=== PATIENT | male | born 1955 | race Caucasian/White ===

== ENCOUNTER 2018-06-11 14:16 | Emergency (ER) | payer OTHER ==
[2018-06-11] MEDS ORDERED: NS 1,000 ML IV ONE (18:22)
[2018-06-11] MEDS ORDERED: ONDANSETRON 4 MG/2 ML VIAL IVP ONE (18:22)
[2018-06-11] MEDS ORDERED: LISINOPRIL 20 MG TAB PO ONE (18:23)
--- NOTE | 2018-06-11 18:27 | EDPHY ---
H & P Stated Complaint: Out of HTN meds Time Seen by Provider: 06/11/18 17:30 HPI/ROS: CHIEF COMPLAINT: Multiple complaints HISTORY OF PRESENT ILLNESS: 63-year-old male presents with multiple complaints. Onset of nausea, vomiting and diarrhea yesterday. Multiple episodes of vomiting, associated with explosive diarrhea. Feels dehydrated. Several episodes of "passing out" over the past few months. He tends to get dizzy and then sometimes faints. He has not fallen or hurt himself. He also ran out of his blood pressure medication a while ago. He was previously taking lisinopril, propranolol and clonidine. He also complains of ongoing pain related to prior rib fracture. He has seen Dr. Velazquez for pain management in the past. REVIEW OF SYSTEMS: complete 10 point ROS reviewed and is negative except for the noted elements in the HPI Source: Patient - Personal History Current Tetanus/Diphtheria Vaccine: Yes - Medical/Surgical History Hx Asthma: No Hx Chronic Respiratory Disease: No Hx Diabetes: No Hx Cardiac Disease: Yes Hx Renal Disease: No Hx Cirrhosis: No Hx Alcoholism: No Other PMH: HTN, Hearing impaired(cochlear implants), AAA - Social History Smoking Status: Never smoked Alcohol Use: Sober Drug Use: None Additional Social History: Lives in [place] No PCP - Physical Exam Exam: General Appearance: Alert, pleasant Eyes: Pupils equal and round, no conjunctival pallor or injection ENT, Mouth: Mucous membranes moist Neck: Normal inspection Respiratory: Lungs are clear to auscultation Cardiovascular: Regular rate and rhythm, no murmur Gastrointestinal: Abdomen is soft and nontender Neurological: A&O, hard of hearing, nonfocal, normal gait Skin: Warm and dry, no rash Extremities: Nontender, no pedal edema Psychiatric: Mood and affect normal Constitutional: Initial Vital Signs Temperature (C) 36.7 C 06/11/18 14:21 Heart Rate 77 06/11/18 14:21 Respiratory Rate 18 06/11/18 14:21 Blood Pressure 196/81 H 06/11/18 14:21 O2 Sat (%) 96 06/11/18 14:21 O2 Delivery Mode Room Air Allergies/Adverse Reactions: banana Allergy (Verified 06/11/18 14:31) egg [eggs] Allergy (Verified 06/11/18 14:31) mold Allergy (Verified 06/11/18 14:31) pollen extracts Allergy (Verified 06/11/18 14:31) Home Medications: Medication Instructions Recorded Clonidine 06/11/18 Lisinopril 06/11/18 Lisinopril 20 mg PO DAILY #30 tablet 06/11/18 Propranolol HCl 06/11/18 Propranolol HCl 40 mg PO BID #30 tablet 06/11/18 Tramadol HCl 50 mg PO Q8 #10 tablet 06/11/18 clonIDINE [Catapres (*)] 0.1 mg PO BID #30 tab 06/11/18 Medical Decision Making ED Course/Re-evaluation: This patient presents with multiple complaints. I told him that we would be able to evaluate and treat the acute illness as well as the recurrent episodes of syncope. He is not ill appearing and his abdominal exam is nontender. IV normal saline 1 L and Zofran 4 mg IV given. Stat EKG reveals no evidence of ischemia or dysrhythmia. Lisinopril 10 mg orally given. After lisinopril, the patient became angry. He states that he needs all of his prescriptions filled. Although I disagree with this and I think that clonidine may be causing his dizziness, I agreed to refill his medications. No episodes of vomiting or diarrhea while in the emergency department. Differential Diagnosis: Differential diagnosis includes though is not limited to cardiac dysrhythmia, CVA, TIA, GI bleed, sepsis, hypoglycemia. - Data Points Laboratory Results: Laboratory Results 06/11/18 18:32 06/11/18 18:32 Medications Given: Discontinued Medications Sodium Chloride (Ns) 1,000 mls @ 0 mls/hr IV EDNOW ONE; Wide Open PRN Reason: Protocol Stop: 06/11/18 18:23 Last Admin: 06/11/18 18:40 Dose: 1,000 mls Lisinopril (Zestril) 10 mg PO EDNOW ONE Stop: 06/11/18 18:24 Last Admin: 06/11/18 18:42 Dose: 10 mg Ondansetron HCl (Zofran) 4 mg IVP EDNOW ONE Stop: 06/11/18 18:23 Last Admin: 06/11/18 18:40 Dose: 4 mg Departure - Departure Disposition: Home, Routine, Self-Care Clinical Impression: Syncope, Vomiting and diarrhea, Hypertension Condition: Good Instructions: Syncope (ED), Acute Nausea and Vomiting (ED), Hypertension (ED) Additional Instructions: 1. I advise you to take Lisinopril 1 tablet in the morning. 2. Check and record your blood pressure 2 times daily. 3. Followup with a primary care physician to review your blood pressure readings and your medication. 4. I advise you not to take propranolol and clonidine, unless your blood pressure remains elevated after taking Lisinopril for 3 days. Referrals: Min Mccoy MD [Medical Doctor] - As per Instructions Kristal Alfred MD [[facility] Primary Care Provider] - As per Instructions (Call to make an appointment. ) Prescriptions: clonIDINE [Catapres (*)] 0.1 mg PO BID #30 tab Lisinopril 20 mg PO DAILY #30 tablet Propranolol HCl 40 mg PO BID #30 tablet Tramadol HCl 50 mg PO Q8 #10 tablet
[2018-06-11 18:39] LABS: PLATELET COUNT 348 10^3/uL (150-400)
[2018-06-11 20:23] VITALS: BP 165/84
--- NOTE | 2018-06-11 23:11 | CPEKG ---
Test Reason : OPEN Blood Pressure : / mmHG Vent. Rate : 068 BPM Atrial Rate : 068 BPM P-R Int : 149 ms QRS Dur : 090 ms QT Int : 383 ms P-R-T Axes : 033 -41 041 degrees QTc Int : 408 ms Sinus rhythm Probable left atrial enlargement Left anterior fascicular block Left ventricular hypertrophy Confirmed by Marie Murillo ([id number]) on 06/11/2018 11:10:42 PM Referred By: Confirmed By:Marie Murillo
== END 2018-06-11 20:25 | disposition home or self-care (01) ==
DX: R55 Syncope and collapse (principal); R11.2 Nausea with vomiting, unspecified; R19.7 Diarrhea, unspecified; I10 Essential (primary) hypertension; E86.9 Volume depletion, unspecified
CPT/HCPCS: 93005; 96361; 96374; 99284; J2405

== ENCOUNTER 2018-12-06 13:18 | Inpatient (IN) | payer OTHER ==
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
[2018-12-06] MEDS ORDERED: ALBUTEROL 3 ML DEYVIAL IH ONE (14:16)
[2018-12-06 14:26] LABS: PLATELET COUNT 249 10^3/uL (150-400)
[2018-12-06] MEDS ORDERED: ACETAMINOPHEN 160 MG/5 ML UDCUP PO ONE (15:49)
[2018-12-06] MEDS: ACETAMINOPHEN 325 MG TAB PO ONE ×2 (15:59→16:18)
[2018-12-06] MEDS ORDERED: NS 2,600 ML IV ONE (16:23)
[2018-12-06] MEDS ORDERED: AZITHROMYCIN IV 500 MG in NS 250 ML IV ONE (16:24)
[2018-12-06] MEDS ORDERED: ACETAMINOPHEN 325 MG TAB PO PRN (16:36)
[2018-12-06] MEDS ORDERED: KETOROLAC 15 MG/1 ML SDV IVP ONE (17:12)
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
[2018-12-06] MEDS: HYDROCODONE/APAP 5/325 TAB PO PRN (18:44)
[2018-12-06] MEDS: IPRATROPIUM/ALBUTEROL 3 ML DEYVIAL IH SCH (21:00)
[2018-12-06] MEDS: oxyCODONE IR 5 MG TAB PO PRN (21:46)
[2018-12-06] MEDS: LORazepam 0.5 MG TAB PO PRN (22:56)
[2018-12-06] MEDS: ALBUTEROL 3 ML DEYVIAL IH PRN (22:58)
[2018-12-06] MEDS ORDERED: CEPACOL LOZENGE PO PRN (23:00)
--- NOTE | 2018-12-06 23:12 | CPEKG ---
Test Reason : OPEN Blood Pressure : / mmHG Vent. Rate : 086 BPM Atrial Rate : 087 BPM P-R Int : 159 ms QRS Dur : 090 ms QT Int : 350 ms P-R-T Axes : 046 -35 071 degrees QTc Int : 419 ms Sinus rhythm Left axis deviation Confirmed by Nichelle Perea ([id number]) on 12/06/2018 11:12:25 PM Referred By: NICHELLE PEREA Confirmed By:Nichelle Perea
[2018-12-06] MEDS: guaiFENesin 600 MG TAB.ER PO SCH (23:23)
[2018-12-07] MEDS: HYDROmorphONE/DILAUDID 1 MG/ML INJ IVP PRN ×2 (00:02→04:02)
[2018-12-07] MEDS: ALBUTEROL 3 ML DEYVIAL IH PRN ×2 (01:29→03:29)
[2018-12-07] MEDS: oxyCODONE IR 5 MG TAB PO PRN ×4 (01:45→11:03)
[2018-12-07] MEDS: LORazepam 2 MG/ML INJ IVP PRN ×2 (01:46→17:03)
[2018-12-07] MEDS: IPRATROPIUM/ALBUTEROL 3 ML DEYVIAL IH SCH ×4 (05:15→21:09)
[2018-12-07 05:22] LABS: PLATELET COUNT 192 10^3/uL (150-400)
[2018-12-07] MEDS: ENOXAPARIN 40 MG/0.4 ML SYR SC SCH (08:39)
[2018-12-07] MEDS: LORazepam 0.5 MG TAB PO PRN ×2 (08:39→16:48)
[2018-12-07] MEDS: guaiFENesin 600 MG TAB.ER PO SCH ×2 (08:39→21:29)
--- NOTE | 2018-12-07 10:26 | PDMN ---
Medical Necessity Medical necessity: Pt meets IP criteria per MD & MCG M-160; est los >2 mn for eval/tx of severe sepsis w/pneumonia (r/o aspiration), acute hypoxic respiratory failure, MATT & acute suicidal ideation; admit for further monitoring , IV abx, IVFs, suicide precautions & CARDIAC TECHNICIAN/TLC evals; hx depression, deafness, AAA; per H&P & order 12/06/18
[2018-12-07] MEDS ORDERED: MELATONIN 3 MG TAB PO PRN (11:08)
[2018-12-07] MEDS: ONDANSETRON DISINTEGRATING 4 MG TAB PO PRN (12:56)
[2018-12-07] MEDS: oxyCODONE IR 5 MG TAB PO SCH ×3 (12:56→23:18)
[2018-12-07] MEDS ORDERED: BISACODYL 10 MG SUPP PR PRN (13:32)
[2018-12-07] MEDS ORDERED: MAGNESIUM HYDROXIDE 30 ML UDCUP PO PRN (13:32)
[2018-12-07] MEDS ORDERED: POLYETHYLENE GLYCOL 3350 17 GM PKT PO PRN (13:32)
[2018-12-07] MEDS ORDERED: LACTULOSE 20 GM/30 ML UDCUP PO PRN (13:32)
[2018-12-07] MEDS: PANTOPRAZOLE SODIUM 40 MG TAB PO SCH (13:44)
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
--- NOTE | 2018-12-07 15:52 | HOSPPROG ---
Hospitalist Progress Note Assessment/Plan: 63 yo M with PMH of HTN, depression pw suicidal ideation and found to have AHRF 2/2 PNA and sepsis Acute hypoxic respiratory failure: does not normally have an oxygen requirement but now requiring 2 liters to maintain sats above 90%. I reviewed the CXR which does show an obvious infiltrate consistent with pna, along with white count. treat as below. RLL PNA: started on CAP coverage. Some mention of possible aspiration. patient does note that he has vocal cord dysfunction. METAL MINER BLASTING ordered to eval swallow as well. severe sepsis: responded to fluids and antibiotics. cont pna treatment, repeat lactate WNL. white count trending down. suicidal ideation: patient amenable to meeting with behavioral health. Not trying to leave currently but will need formal eval by TLC. If tries to leave ama I would place on M1 hold. depression/ptsd: patient reports these dx and states he has been attempting to establish care with psychiatry without success, as above. James Andersen consulted. hyponatremia: mild, likely hypovolemic. chronic pain- home medications restarted. HTN- restart lisinopril. renal function normalized. hang: suspect due to poor po intake, patient appears dry on exam, fluids overnight and recheck IP status, will require > 48 hours stay for eval/mgmt of above Patient new to my care. Old records reviewed and summarized as above. Subjective: still coughing a lot. perseverates on multiple stressors at home. Objective: Vital Signs Temp Pulse Resp BP Pulse Ox 36.9 C 105 H 16 177/83 H 95 12/07/18 11:08 12/07/18 15:12 12/07/18 15:12 12/07/18 11:08 12/07/18 15:12 Laboratory Results 12/07/18 05:00 12/07/18 05:00 12/06/18 12/07/18 12/08/18 05:59 05:59 05:59 Intake Total 2950 Output Total 100 Balance 2850 - Physical Exam Constitutional: no apparent distress, appears nourished, not in pain Eyes: PERRL, anicteric sclera, EOMI Ears, Nose, Mouth, Throat: moist mucous membranes, hearing normal, ears appear normal, no oral mucosal ulcers Cardiovascular: regular rate and rhythym, no murmur, rub, or gallop Respiratory: reduced air movement, inspiratory crackles Gastrointestinal: normoactive bowel sounds, soft, non-tender abdomen, no palpable masses Genitourinary: no bladder fullness, no bladder tenderness, no renal bruits Skin: no rashes or abrasions, no fluctuance, no induration Musculoskeletal: full muscle strength, no muscle tenderness, normal joint ROM Neurologic: AAOx3, sensation intact bilaterally Psychiatric: interacting appropriately, not anxious, not encephalopathic, thought process linear Lymph, Heme, Immunologic: no cervical LAD, no supraclavicular LAD ICD10 Worksheet Patient Problems: Problems Problem Status Onset Hypoxia Acute Pneumonia Acute Suicidal ideation Acute
--- NOTE | 2018-12-07 16:29 | ASMTCMCOM ---
CM Note CM Note Notes: Pt is a 63 yo M with a history of deafness, HTN, AAA and PTSD and depression. Pt has history of suicidal ideation. Per ED report pt has history of affording his psychiatry appts and may need assistance obtaining follow-up. Pt has been seen by Zena Andersen today. Is ruiz for safety and working closely with nursing staff. Pt is wanting to be evaluated by TLC. Plan: TBD Date Signed: 12/07/2018 04:28 PM Electronically Signed By:NOÉ De Anda
[2018-12-07] MEDS: BACLOFEN 10 MG TAB PO SCH ×2 (16:48→21:28)
[2018-12-07] MEDS: ONDANSETRON 4 MG/2 ML VIAL IVP PRN (17:38)
[2018-12-07] MEDS: MAG HYDROX/AL HYDROX/SIMETH 30 ML UDCUP PO PRN (17:39)
[2018-12-07] MEDS: AZITHROMYCIN IV 500 MG in NS 250 ML IV SCH (17:40)
[2018-12-07] MEDS: NS 1,000 ML IV SCH (17:41)
[2018-12-07] MEDS: FLUTICASONE HFA 110 MCG MDI IH SCH (21:09)
[2018-12-07] MEDS: FAMOTIDINE 20 MG TAB PO SCH (21:28)
[2018-12-07] MEDS: SENNOSIDES/DOCUSATE SODIUM TAB PO SCH (21:30)
[2018-12-07] MEDS: HYDROCODONE/APAP 5/325 TAB PO PRN (21:34)
[2018-12-07] MEDS: BRIMONIDINE/TIMOLOL 5 ML OPHT.BTL EACHEYE SCH (21:36)
[2018-12-07] MEDS: TRAVOPROST Z 0.004% 2.5 ML OPHT.BTL EACHEYE SCH (21:37)
[2018-12-07] MEDS: NEBIVOLOL HCL 5 MG TAB PO SCH (22:06)
[2018-12-08] MEDS: LORazepam 0.5 MG TAB PO PRN ×3 (01:21→20:21)
[2018-12-08] MEDS: NS 1,000 ML IV SCH (01:23)
[2018-12-08] MEDS: oxyCODONE IR 5 MG TAB PO SCH ×3 (05:20→19:08)
[2018-12-08] MEDS: IPRATROPIUM/ALBUTEROL 3 ML DEYVIAL IH SCH ×5 (05:33→20:49)
[2018-12-08 05:38] LABS: PLATELET COUNT 191 10^3/uL (150-400)
[2018-12-08] MEDS: LISINOPRIL 40 MG TAB PO SCH (10:06)
[2018-12-08] MEDS: FAMOTIDINE 20 MG TAB PO SCH ×2 (10:08→20:20)
[2018-12-08] MEDS: BACLOFEN 10 MG TAB PO SCH ×3 (10:08→21:11)
[2018-12-08] MEDS: guaiFENesin 600 MG TAB.ER PO SCH ×2 (10:09→20:20)
[2018-12-08] MEDS: PANTOPRAZOLE SODIUM 40 MG TAB PO SCH (10:11)
[2018-12-08] MEDS: ENOXAPARIN 40 MG/0.4 ML SYR SC SCH (10:12)
[2018-12-08] MEDS: BRIMONIDINE/TIMOLOL 5 ML OPHT.BTL EACHEYE SCH ×2 (10:14→21:12)
[2018-12-08] MEDS: SENNOSIDES/DOCUSATE SODIUM TAB PO SCH (10:14)
[2018-12-08] MEDS: FLUTICASONE HFA 110 MCG MDI IH SCH ×2 (11:22→20:49)
[2018-12-08] MEDS: HYDROmorphONE/DILAUDID 1 MG/ML INJ IVP PRN ×2 (12:04→18:34)
[2018-12-08] MEDS ORDERED: BISACODYL 10 MG SUPP PR PRN (13:26)
[2018-12-08] MEDS ORDERED: POLYETHYLENE GLYCOL 3350 17 GM PKT PO PRN (13:26)
[2018-12-08] MEDS ORDERED: LACTULOSE 20 GM/30 ML UDCUP PO PRN (13:26)
[2018-12-08] MEDS ORDERED: MAGNESIUM HYDROXIDE 30 ML UDCUP PO PRN (13:26)
[2018-12-08] MEDS ORDERED: NALOXONE SL SCH (13:45)
[2018-12-08] MEDS ORDERED: [UNRECOGNIZED DRUG - OTHER] SL SCH (13:45)
[2018-12-08] MEDS ORDERED: methylPREDNISolone SOD SUCC 125 MG/2 ML VIAL IVP ONE (14:00)
--- NOTE | 2018-12-08 14:46 | HOSPPROG ---
Hospitalist Progress Note Assessment/Plan: 63 yo M with PMH of HTN, depression pw suicidal ideation and found to have AHRF 2/2 PNA and sepsis Acute hypoxic respiratory failure:uses two liters at night normally for GILSON, now requiring 4 liters. repeat CXR today unchanged. Lungs sound very tight and with wheezing on expiration. White count substantially improved from admission. Patient did admit to smoking 3 grams of Marijuana daily through a bong which may be contributing to his cough. -cont abx for CAP -add solumedrol today and prednisone starting tomorrow -nebs. -oxygen -tessalon, guiafenesin RLL PNA: started on CAP coverage. Some mention of possible aspiration. patient does note that he has vocal cord dysfunction. LIGHT OUT EXAMINER ordered to eval swallow as well. severe sepsis: responded to fluids and antibiotics. cont pna treatment, repeat lactate WNL. white count trending down. suicidal ideation: behavioral health following. . Not trying to leave currently but will need formal eval by TLC. If tries to leave ama I would place on M1 hold. depression/ptsd: patient reports these dx and states he has been attempting to establish care with psychiatry without success, as above. James Andersen consulted. hyponatremia: resolved with fluids chronic pain- home medications restarted. HTN- restart lisinopril. renal function normalized. hang: suspect due to poor po intake, patient appears dry on exam, fluids overnight and recheck IP status, will require > 48 hours stay for eval/mgmt of above Subjective: coughing up a lot of brown phlegm. lungs tight. does feel improved. Objective: Vital Signs Temp Pulse Resp BP Pulse Ox 37.0 C 84 20 138/75 H 95 12/08/18 11:01 12/08/18 11:01 12/08/18 11:01 12/08/18 11:01 12/08/18 11:01 Laboratory Results 12/08/18 04:54 12/08/18 04:54 12/07/18 12/08/18 12/09/18 05:59 05:59 05:59 Intake Total 2950 5050 Output Total 100 Balance 2850 5050 - Physical Exam Constitutional: no apparent distress, appears nourished, not in pain Eyes: PERRL, anicteric sclera, EOMI Ears, Nose, Mouth, Throat: moist mucous membranes, hearing normal, ears appear normal, no oral mucosal ulcers Cardiovascular: regular rate and rhythym, no murmur, rub, or gallop Respiratory: no respiratory distress, reduced air movement, expiratory wheeze Gastrointestinal: normoactive bowel sounds, soft, non-tender abdomen, no palpable masses Genitourinary: no bladder fullness, no bladder tenderness, no renal bruits Skin: no rashes or abrasions, no fluctuance, no induration Musculoskeletal: full muscle strength, no muscle tenderness, normal joint ROM Neurologic: AAOx3, sensation intact bilaterally Psychiatric: interacting appropriately, not anxious, not encephalopathic, thought process linear Lymph, Heme, Immunologic: no cervical LAD, no supraclavicular LAD ICD10 Worksheet Patient Problems: Problems Problem Status Onset Hypoxia Acute Pneumonia Acute Suicidal ideation Acute
[2018-12-08] MEDS: Alfuzosin Hcl [Alfuzosin Hcl Er] 10 MG PO SCH (15:55)
[2018-12-08] MEDS: TAMSULOSIN HCL 0.4 MG CAP PO SCH (16:09)
[2018-12-08] MEDS: AZITHROMYCIN IV 500 MG in NS 250 ML IV SCH (17:27)
[2018-12-08] MEDS ORDERED: SODIUM CL NASAL 45 ML BTL EACHNARE PRN (17:55)
[2018-12-08] MEDS: NEBIVOLOL HCL 5 MG TAB PO SCH (20:20)
[2018-12-08] MEDS: DOCUSATE SODIUM 100 MG CAP PO SCH (21:12)
[2018-12-08] MEDS: TRAVOPROST Z 0.004% 2.5 ML OPHT.BTL EACHEYE SCH (21:13)
[2018-12-09] MEDS: oxyCODONE IR 5 MG TAB PO SCH ×4 (00:01→18:01)
[2018-12-09] MEDS: predniSONE 20 MG TAB PO SCH (08:22)
[2018-12-09] MEDS: LISINOPRIL 40 MG TAB PO SCH (08:22)
[2018-12-09] MEDS: FLUTICASONE HFA 110 MCG MDI IH SCH ×2 (09:12→21:24)
[2018-12-09] MEDS: IPRATROPIUM/ALBUTEROL 3 ML DEYVIAL IH SCH ×2 (09:12→21:17)
[2018-12-09] MEDS: BACLOFEN 10 MG TAB PO SCH ×4 (10:00→21:04)
[2018-12-09] MEDS: DOCUSATE SODIUM 100 MG CAP PO SCH ×2 (10:00→21:04)
[2018-12-09] MEDS: PANTOPRAZOLE SODIUM 40 MG TAB PO SCH (10:07)
[2018-12-09] MEDS: TAMSULOSIN HCL 0.4 MG CAP PO SCH (10:07)
[2018-12-09] MEDS: FAMOTIDINE 20 MG TAB PO SCH ×2 (10:07→21:04)
[2018-12-09] MEDS: ENOXAPARIN 40 MG/0.4 ML SYR SC SCH (10:07)
[2018-12-09] MEDS: guaiFENesin 600 MG TAB.ER PO SCH ×2 (10:07→21:03)
[2018-12-09] MEDS: MAG HYDROX/AL HYDROX/SIMETH 30 ML UDCUP PO PRN (10:07)
[2018-12-09] MEDS: BRIMONIDINE/TIMOLOL 5 ML OPHT.BTL EACHEYE SCH ×2 (10:32→21:06)
[2018-12-09] MEDS: Alfuzosin Hcl [Alfuzosin Hcl Er] 10 MG PO SCH (10:33)
[2018-12-09] MEDS: NS 1,000 ML IV SCH (14:07)
[2018-12-09] MEDS: hydrOXYzine HCL 10 MG TAB PO PRN (14:08)
[2018-12-09] MEDS: LORazepam 0.5 MG TAB PO PRN (16:09)
[2018-12-09] MEDS: ALBUTEROL 3 ML DEYVIAL IH PRN (16:10)
[2018-12-09] MEDS: AZITHROMYCIN IV 500 MG in NS 250 ML IV SCH (16:29)
--- NOTE | 2018-12-09 16:47 | HOSPPROG ---
Hospitalist Progress Note Assessment/Plan: 63 yo M with PMH of HTN, depression pw suicidal ideation and found to have AHRF 2/2 PNA and sepsis Acute hypoxic respiratory failure:uses two liters at night normally for GILSON, now requiring 4 liters. repeat CXR unchanged. Lungs sound very tight and with wheezing on expiration. White count substantially improved from admission. Patient did admit to smoking 3 grams of Marijuana daily through a bong which may be contributing to his cough. -cont abx for CAP -cont prednisone -nebs. -oxygen -tessalon, guiafenesin RLL PNA: started on CAP coverage. Some mention of possible aspiration. patient does note that he has vocal cord dysfunction. MEDICAL BILLING SPECIALIST ordered to eval swallow as well. severe sepsis: resolved. responded to fluids and antibiotics. cont pna treatment , repeat lactate WNL. white count trending down. suicidal ideation: behavioral health following. . Not trying to leave currently but will need formal eval by TLC. If tries to leave ama I would place on M1 hold. depression/ptsd: patient reports these dx and states he has been attempting to establish care with psychiatry without success, as above. James Andersen consulted. hyponatremia: resolved with fluids chronic pain- home medications restarted. HTN- restart lisinopril. renal function normalized. hang:resolved with fluids IP status, will require > 48 hours stay for eval/mgmt of above Subjective: lungs mildly better today. still coughing a lot. Objective: Vital Signs Temp Pulse Resp BP Pulse Ox 36.7 C 79 18 162/76 H 95 12/09/18 06:53 12/09/18 16:13 12/09/18 16:13 12/09/18 08:22 12/09/18 16:13 Laboratory Results 12/08/18 04:54 12/08/18 04:54 12/08/18 12/09/18 12/10/18 05:59 05:59 05:59 Intake Total 5050 1999 Balance 5050 1999 - Physical Exam Constitutional: no apparent distress, appears nourished Eyes: PERRL Ears, Nose, Mouth, Throat: moist mucous membranes, hard of hearing Cardiovascular: regular rate and rhythym, no murmur, rub, or gallop Respiratory: reduced air movement, expiratory wheeze Gastrointestinal: normoactive bowel sounds Genitourinary: no bladder fullness Skin: warm Musculoskeletal: full muscle strength Neurologic: AAOx3 Psychiatric: interacting appropriately Lymph, Heme, Immunologic: no cervical LAD, no supraclavicular LAD ICD10 Worksheet Patient Problems: Problems Problem Status Onset Hypoxia Acute Pneumonia Acute Suicidal ideation Acute
--- NOTE | 2018-12-09 17:00 | ASMTCMCOM ---
CM Note CM Note Notes: Pt discussed in rounds, with Zena Andersen RN, SUBMARINE ELEMENT COORDINATOR and met with Pt. Pt was pleasant during our interactions. Pt provided the name of Mehdi Penningtonmaddyacacia an associated director, senior living service that has managed his case and Pt signed a release of information so I could speak with Ankur. Pt did not have Ankur's phone number but did look it up and found a general number [phone] or office of director [phone]. Because it's an [facility] number and it would have been after 5p Pt agreed CM would call in the morning. Pt has a list of treatment centers I will contacted once I have spoken with Ankur. PLAN: TBD Date Signed: 12/09/2018 04:59 PM Electronically Signed By:Sofia Zee
[2018-12-09] MEDS: HYDROmorphONE/DILAUDID 1 MG/ML INJ IVP PRN (21:02)
[2018-12-09] MEDS: NEBIVOLOL HCL 5 MG TAB PO SCH (21:04)
[2018-12-09] MEDS: PRAZOSIN HCL 1 MG CAP PO SCH (21:04)
[2018-12-09] MEDS: TRAVOPROST Z 0.004% 2.5 ML OPHT.BTL EACHEYE SCH (21:05)
[2018-12-09] MEDS: ONDANSETRON 4 MG/2 ML VIAL IVP PRN (21:41)
[2018-12-10] MEDS: oxyCODONE IR 5 MG TAB PO SCH ×5 (00:08→23:29)
[2018-12-10] MEDS: LORazepam 0.5 MG TAB PO PRN ×2 (00:08→22:47)
[2018-12-10] MEDS: PROMETHAZINE HCL 25 MG/ML INJ IVP PRN (00:21)
[2018-12-10] MEDS: NS 1,000 ML IV SCH (05:02)
[2018-12-10 05:34] LABS: PLATELET COUNT 222 10^3/uL (150-400)
[2018-12-10] MEDS: IPRATROPIUM/ALBUTEROL 3 ML DEYVIAL IH SCH ×2 (08:10→21:03)
[2018-12-10] MEDS: FLUTICASONE HFA 110 MCG MDI IH SCH ×2 (08:10→21:03)
[2018-12-10] MEDS: ENOXAPARIN 40 MG/0.4 ML SYR SC SCH (08:31)
[2018-12-10] MEDS: LISINOPRIL 40 MG TAB PO SCH (08:31)
[2018-12-10] MEDS: guaiFENesin 600 MG TAB.ER PO SCH ×2 (08:31→21:35)
[2018-12-10] MEDS: DOCUSATE SODIUM 100 MG CAP PO SCH ×2 (08:31→21:35)
[2018-12-10] MEDS: FAMOTIDINE 20 MG TAB PO SCH ×2 (08:31→21:35)
[2018-12-10] MEDS: predniSONE 20 MG TAB PO SCH (08:31)
[2018-12-10] MEDS: PANTOPRAZOLE SODIUM 40 MG TAB PO SCH (08:31)
[2018-12-10] MEDS: BACLOFEN 10 MG TAB PO SCH ×3 (08:31→21:35)
[2018-12-10] MEDS: LORazepam 2 MG/ML INJ IVP PRN (08:32)
[2018-12-10] MEDS: BRIMONIDINE/TIMOLOL 5 ML OPHT.BTL EACHEYE SCH ×2 (08:36→21:35)
[2018-12-10] MEDS: HYDROmorphONE/DILAUDID 2 MG TAB PO PRN ×2 (12:43→21:34)
--- NOTE | 2018-12-10 14:39 | HOSPPROG ---
Hospitalist Progress Note Assessment/Plan: 63 yo M with PMH of HTN, depression pw suicidal ideation and found to have AHRF 2/2 PNA and sepsis Acute hypoxic respiratory failure:uses two liters at night normally for GILSON, now requiring 3-4 liters. repeat CXR minimally improved. Lungs sound better today. patient is non compliant with oxygen and not using incentive spirometer. white count conitnues to improve. -repeat am procalcitonin -cont abx for CAP -cont prednisone -nebs. -oxygen -tessalon, guiafenesin RLL PNA: started on CAP coverage. Some mention of possible aspiration. patient does note that he has vocal cord dysfunction. ASSISTANT PROFESSOR OF COMMUNICATION ordered to eval swallow as well. severe sepsis: resolved. responded to fluids and antibiotics. cont pna treatment , repeat lactate WNL. white count trending down. suicidal ideation: behavioral health following. . Not trying to leave currently but will need formal eval by TLC. If tries to leave ama I would place on M1 hold. depression/ptsd: patient reports these dx and states he has been attempting to establish care with psychiatry without success, as above. James Andersen consulted. hyponatremia: resolved with fluids chronic pain- home medications restarted. HTN- restart lisinopril. renal function normalized. hang:resolved with fluids IP status, will require > 48 hours stay for eval/mgmt of above Subjective: tired. coughing less. Objective: Vital Signs Temp Pulse Resp BP Pulse Ox 36.8 C 75 20 143/64 H 94 12/10/18 08:00 12/10/18 08:15 12/10/18 08:15 12/10/18 08:31 12/10/18 08:15 Laboratory Results 12/10/18 04:46 12/10/18 04:46 12/09/18 12/10/18 12/11/18 05:59 05:59 05:59 Intake Total 1999 4750 500 Balance 1999 4750 500 - Physical Exam Constitutional: no apparent distress, appears nourished, not in pain Eyes: PERRL, anicteric sclera, EOMI Ears, Nose, Mouth, Throat: hard of hearing Cardiovascular: regular rate and rhythym, no murmur, rub, or gallop Respiratory: reduced air movement, other (mildly diminished air movement, but no audible wheezes today, and imroved from prior) Gastrointestinal: normoactive bowel sounds, soft, non-tender abdomen, no palpable masses Genitourinary: no bladder fullness, no bladder tenderness, no renal bruits Skin: no rashes or abrasions, no fluctuance, no induration Musculoskeletal: full muscle strength, no muscle tenderness, normal joint ROM Neurologic: AAOx3, sensation intact bilaterally Psychiatric: interacting appropriately, not anxious, not encephalopathic, thought process linear Lymph, Heme, Immunologic: no cervical LAD, no supraclavicular LAD ICD10 Worksheet Patient Problems: Problems Problem Status Onset Hypoxia Acute Pneumonia Acute Suicidal ideation Acute
--- NOTE | 2018-12-10 16:21 | ASMTCMCOM ---
CM Note CM Note Notes: Met with Pt on several occasional to discuss plans of contacting Mehdi Alvarado JR to get Authorization for a treatment center. This CM was able to find a direct number to Mehdi ([phone]) at the office of personal management. I contacted Michelle office and brenda Urrutia returned my call saying they could not help because Ankur's office only handled intermediate imbursements. I conveyed this to Uhce and he asked that I call again to remind Ankur who he was and sure enough Ankur returned my call. Ankur was able to give me numbers, but could not help because it is not what the office of personal management does. Health Insurance ([phone]), Customer service 24hr ([phone]) and 24hr Nurse Hot line ([phone]). Pt provided with these numbers but this CM was not able to call to inquire. HARINDER has attempted to find a number to get authorization for placement in a treatment facility. The following are Places Uche is interested in going to and he did not want me to start calling until we have approval. CM the Center [facility] ( ), [facility] program [facility], [facility]( ), [facility] ([phone]), [facility] ([phone]). 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 Pt feels the eye issue may be due to a hereditary eye disorder. The Pt expressed his and thermograph operator refuse to listen to the doctors and already have taken action to prevent him from getting timely medical care on his eyes, so he is not both blind and deaf. Pt states he had a doctor and mental health crisis center recommend due to his psychiatric disease that the court proceedings be put on hold while he gets help. Pts Collection Specialist took action to back this, but his wifes thermograph operator/ are ignoring him. Pt is still requiring oxygen and will not be cleared medically until thursday. CM will need to contact [facility] for an evaluation on Thursday to determine if Pt is safe to go home or does he need placement. Pt would like CM to fax Dr Arturo Castellon Pulmonogist at [facility] his records from here. Date Signed: 12/10/2018 04:20 PM Electronically Signed By:Sofia Zee
[2018-12-10] MEDS: NEBIVOLOL HCL 5 MG TAB PO SCH (21:35)
[2018-12-10] MEDS: PRAZOSIN HCL 1 MG CAP PO SCH (21:35)
[2018-12-10] MEDS: TRAVOPROST Z 0.004% 2.5 ML OPHT.BTL EACHEYE SCH (21:36)
[2018-12-11] MEDS: HYDROmorphONE/DILAUDID 2 MG TAB PO PRN ×4 (03:23→20:53)
[2018-12-11] MEDS: oxyCODONE IR 5 MG TAB PO SCH ×4 (05:28→23:27)
[2018-12-11] MEDS: FLUTICASONE HFA 110 MCG MDI IH SCH ×2 (05:54→20:43)
[2018-12-11] MEDS: IPRATROPIUM/ALBUTEROL 3 ML DEYVIAL IH SCH ×2 (05:54→20:43)
[2018-12-11 08:44] LABS: PLATELET COUNT 245 10^3/uL (150-400)
[2018-12-11] MEDS ORDERED: FUROSEMIDE 20 MG/2 ML VIAL IVP ONE ×2 (08:47→15:13)
[2018-12-11] MEDS: FAMOTIDINE 20 MG TAB PO SCH ×2 (09:31→20:54)
[2018-12-11] MEDS: ENOXAPARIN 40 MG/0.4 ML SYR SC SCH (09:31)
[2018-12-11] MEDS: guaiFENesin 600 MG TAB.ER PO SCH ×2 (09:31→20:53)
[2018-12-11] MEDS: PANTOPRAZOLE SODIUM 40 MG TAB PO SCH (09:31)
[2018-12-11] MEDS: DOCUSATE SODIUM 100 MG CAP PO SCH ×2 (09:31→20:53)
[2018-12-11] MEDS: BACLOFEN 10 MG TAB PO SCH ×3 (09:31→20:53)
[2018-12-11] MEDS: LISINOPRIL 40 MG TAB PO SCH (09:35)
[2018-12-11] MEDS: predniSONE 20 MG TAB PO SCH (10:35)
[2018-12-11] MEDS: BRIMONIDINE/TIMOLOL 5 ML OPHT.BTL EACHEYE SCH ×2 (10:36→20:54)
[2018-12-11] MEDS: LORazepam 0.5 MG TAB PO PRN ×2 (12:30→20:53)
[2018-12-11] MEDS: ONDANSETRON DISINTEGRATING 4 MG TAB PO PRN ×2 (12:35→21:03)
--- NOTE | 2018-12-11 14:47 | ASMTLCPROG ---
Notes Note: Notes: Collateral information has been compiled into a [facility] eval area to help facilitate evaluation process once PT is medically cleared. PT will not be medically cleared until Thursday. Due to notes written by Zena Andersen and Case mgmt I do not believe presenting the BDI or BSS at this time would be benificial and could agitate the patient. Date Signed: 12/11/2018 02:46 PM Electronically Signed By:Quincy Grant
--- NOTE | 2018-12-11 14:54 | ECHO ---
[email or web address] [address] [address] Main: [phone] Echocardiography Examination Transthoracic Name: EULALIO PENDLETON MR#: [id number] Study Date: 12/11/2018 Study Time: 08:49 AM Date of : 1955 Age: 63 year(s) Height: 180.3 cm (71 in.) Weight: 86.18 kg (190 lb.) BSA: 2.06 m2 Gender: Male Examination: Echo Contrast: Image Quality: Adequate Rhythm: Heart Rate: 98 bpm BP: 145 mmHg/71 mmHg Indication: PNA, worse SOB, edema, BNP 7500 Procedure Staff Referring Physician: Student Loan Counselor: Grecia Gutierrez [facility] [place] Reading Physician: Rocío Hernandez MD Requesting Provider: Ordering Physician: Ean Judd Indication: PNA, worse SOB, edema, BNP 7500 Measurements Chambers AV/MV Label Value Normal Value Label Value Normal Value LVOT Vmax 1.24 m/s (0.7m/s - 1.1m/s) AR PHT 0.33 s LVOTd 2.1 cm (1.9cm - 2.1cm) AR PHT 325 ms LVDd, 2D 5.1 cm (4.2cm - 5.9cm) AR Vena contracta 0.7 cm LVDs, 2D 3.4 cm (2.1cm - 4cm) AR Vmax 3.69 m/s IVSd, 2D 1.1 cm (0.6cm - 1.1cm) AV PGmax 15 mmHg LVPWd, 2D 1 cm (0.6cm - 1cm) AV Vmax 1.93 m/s LVEF, BP 58 % (55% - 70%) BRISA (Vmax) 2.2 cm2 LVEF, 2D 61 % (54% - 74%) MV E Vmax 0.89 m/s RVDd, 2D 3.2 cm (1.9cm - 3.8cm) MV A Vmax 0.88 m/s TAPSE 2.9 cm MV E/A 1.01 LA Volume, BP 75 ml (18ml - 58ml) MV E/E' lateral 10.1 LADs, 2D 3.9 cm (3cm - 4cm) MV E/E' septal 15.2 (0.45 - 1.25) LAESV index, BP 36.4 ml/m2 MV DT 180 ms RA Area 21 cm2 MV E' septal 0.06 m/s Additional Vessels MV E' lateral 0.09 m/s Label Value Normal Value MV E/E' mean 11.87 AoAsc 4.5 cm MV E' mean 0.08 m/s AoRoot, 2D 4.5 cm (1.4cm - 2.6cm) TV/PV Label Value Normal Value Patient: EULALIO PENDLETON Study Date: 12/11/2018 Page 1 of 3 08:49 AM RA Pressure 5 mmHg RVSP 50 mmHg TR Pmax 45 mmHg TR Vmax 3.34 m/s PV PGmax 7 mmHg PV Vmax, Caliper 1.36 m/s (0.6m/s - 0.9m/s) Conclusions 1. mild concentric LVH. Normal LV size. Normal LV systolic function with an ejection fraction of 58%. Normal wall motion. Grade 2 diastolic dysfunction. 2. The right ventricle is normal in size and systolic function. 3. Mild left atrial dilation. 4. Aortic valve is trileaflet. There is no aortic stenosis. Moderate to severe aortic regurgitation. 5. Mild tricuspid regurgitation. Moderate pulmonary hypertension with an estimated PA systolic pressure of 50 mm of mercury. 6. The ascending aorta is dilated at 4.5 cm which will require serial follow-up. Consider dedicated CT of the aorta for further clarification. 7. No previous echo Findings Left Ventricle: Left ventricle is normal in size. Normal global systolic left ventricular function. EF evaluated by EF (biplane Martin's). The ejection fraction, measured by Simpsons method, is 58 %. EF range is estimated at 60 % - 65 %. There is mild concentric left ventricular hypertrophy. Grade II Diastolic Dysfunction. Right Ventricle: Normal size right ventricle. Right ventricular systolic function is normal. Left Atrium: The left atrium is mildly dilated. Mitral Valve: Mitral valve appears structurally normal. No significant mitral regurgitation. No mitral valve stenosis. Aortic Valve: Moderate to severe aortic regurgitation is present. There is no aortic stenosis. The aortic valve is trileaflet. Tricuspid Valve: Tricuspid valve leaflets are structurally normal. Mild tricuspid regurgitation. Right Ventricular systolic pressure is measured at 50 mmHg. Pulmonary artery pressure moderately increased. Pulmonic Valve: Pulmonic valve is poorly visualized. Aorta: The aortic root size in 2D measures 4.5 cm. The aortic root exhibits dilatation. The ascending aorta measures 4.5 cm. There is dilatation of the ascending aorta. Aorta Measurements AoRoot, 2D is 4.5 cm. IVC: The inferior vena cava is normal in size and course. Pericardium: No pericardial effusion. Exam Details Procedure Ordered: Echo Procedure Status: Routine study Image Quality: Adequate Patient: EULALIO PENDLETON Study Date: 12/11/2018 Page 2 of 3 08:49 AM Facility Location: Cardiac Echo 1 (No Signature Object) Patient: EULALIO PENDLETON Study Date: 12/11/2018 Page 3 of 3 08:49 AM [id number]
--- NOTE | 2018-12-11 15:30 | HOSPPROG ---
Hospitalist Progress Note Assessment/Plan: 63 yo M with PMH of HTN, depression pw suicidal ideation and found to have AHRF 2/2 PNA and sepsis Acute hypoxic respiratory failure:uses two liters at night normally for GILSON, now requiring 3 liters. repeat CXR minimally improved. started on steroids with improvement. He continues to improve clinically, white count downtrending, procalcitonin downtrending as well. patient complaining of blood tinged sputum, prompting CT chest which showed PNA and right effusion. patient developed some jaquan 2/2 to steroids and is not sleeping, demanding things from nurses and writing long notes with odd demands. -due to reaction with prednisone will hold today -cont abx for CAP -nebs. -oxygen -tessalon, guiafenesin -tiral of lasix today for effusion -echo today. -CT with PNA and right effusion. RLL PNA: started on CAP coverage. patient does note that he has vocal cord dysfunction. LIFESTYLE COORDINATOR ordered to eval swallow as well. severe sepsis: resolved. responded to fluids and antibiotics. cont pna treatment , repeat lactate WNL. white count trending down. Jaquan- likely due to steroids. patient up all night, personal belongings strewn about room and on bed. Demanding a toxicology consult, onc consult, ct of his foot and thinks we are trying to poison him with polychlorinated biphenyl. -hold steroids, hopefully will resolve without any further intervention -prn anti anxiety medications. -mental health following. suicidal ideation: behavioral health following. Not trying to leave currently but will need formal eval by [facility]. If tries to leave ama I would place on M1 hold. depression/ptsd: patient reports these dx and states he has been attempting to establish care with psychiatry without success, as above. James Andersen consulted. hyponatremia: resolved with fluids chronic pain- home medications restarted. HTN- restart lisinopril. renal function normalized. hang:resolved with fluids PPX- lovenox 40 daily IP status, will require > 48 hours stay for eval/mgmt of above Subjective: patient up all night, demanding toxicology consult, thinks we are trying to poison him. says his lifeforce is being drained. Objective: Vital Signs Temp Pulse Resp BP Pulse Ox 36.4 C 96 18 152/75 H 93 12/11/18 07:40 12/11/18 08:00 12/11/18 08:00 12/11/18 09:35 12/11/18 08:00 Laboratory Results 12/11/18 07:52 12/10/18 04:46 12/10/18 12/11/18 12/12/18 05:59 05:59 05:59 Intake Total 4750 1999 Balance 4750 1999 - Physical Exam Constitutional: unkempt Eyes: PERRL, anicteric sclera, EOMI Ears, Nose, Mouth, Throat: moist mucous membranes, hearing normal, ears appear normal, no oral mucosal ulcers Cardiovascular: regular rate and rhythym, no murmur, rub, or gallop Respiratory: reduced air movement, inspiratory crackles Gastrointestinal: normoactive bowel sounds, soft, non-tender abdomen, no palpable masses Genitourinary: no bladder fullness, no bladder tenderness, no renal bruits Skin: no rashes or abrasions, no fluctuance, no induration Musculoskeletal: full muscle strength, no muscle tenderness, normal joint ROM Neurologic: AAOx3, sensation intact bilaterally Psychiatric: anxious, poor insight, poor judgement Lymph, Heme, Immunologic: no cervical LAD, no supraclavicular LAD ICD10 Worksheet Patient Problems: Problems Problem Status Onset Hypoxia Acute Pneumonia Acute Suicidal ideation Acute
[2018-12-11] MEDS: ALBUTEROL 3 ML DEYVIAL IH PRN (15:39)
[2018-12-11] MEDS: NEBIVOLOL HCL 5 MG TAB PO SCH (20:53)
[2018-12-11] MEDS: PRAZOSIN HCL 1 MG CAP PO SCH (20:53)
[2018-12-11] MEDS: TRAVOPROST Z 0.004% 2.5 ML OPHT.BTL EACHEYE SCH (20:54)
[2018-12-11] MEDS: PROMETHAZINE HCL 25 MG/ML INJ IVP PRN (23:28)
[2018-12-12] MEDS: HYDROmorphONE/DILAUDID 2 MG TAB PO PRN ×4 (04:13→21:55)
[2018-12-12 05:23] LABS: PLATELET COUNT 265 10^3/uL (150-400)
[2018-12-12] MEDS: oxyCODONE IR 5 MG TAB PO SCH ×3 (05:34→18:43)
[2018-12-12] MEDS: LORazepam 0.5 MG TAB PO PRN ×3 (05:34→21:55)
[2018-12-12] MEDS: IPRATROPIUM/ALBUTEROL 3 ML DEYVIAL IH SCH ×2 (10:39→19:58)
[2018-12-12] MEDS: PANTOPRAZOLE SODIUM 40 MG TAB PO SCH (10:39)
[2018-12-12] MEDS: guaiFENesin 600 MG TAB.ER PO SCH ×2 (10:39→21:54)
[2018-12-12] MEDS: LISINOPRIL 40 MG TAB PO SCH (10:39)
[2018-12-12] MEDS: FAMOTIDINE 20 MG TAB PO SCH ×2 (10:40→21:50)
[2018-12-12] MEDS: FLUTICASONE HFA 110 MCG MDI IH SCH ×2 (10:40→19:57)
[2018-12-12] MEDS: BENZONATATE 100 MG CAP PO PRN ×2 (10:40→21:50)
[2018-12-12] MEDS: DOCUSATE SODIUM 100 MG CAP PO SCH ×2 (10:40→22:03)
[2018-12-12] MEDS: ENOXAPARIN 40 MG/0.4 ML SYR SC SCH (10:40)
[2018-12-12] MEDS: BACLOFEN 10 MG TAB PO SCH ×3 (10:40→21:56)
[2018-12-12] MEDS: BRIMONIDINE/TIMOLOL 5 ML OPHT.BTL EACHEYE SCH ×2 (10:45→21:56)
[2018-12-12] MEDS: FUROSEMIDE 20 MG/2 ML VIAL IVP SCH (12:56)
--- NOTE | 2018-12-12 14:23 | ASMTLCPROG ---
Notes Note: Notes: [facility] attempted to complete evaluation, but since it believed Prednisone may be impacting pt's behavior. The evaluation will need to wait to be comleted until the Prednisone is out of his sytem. Date Signed: 12/12/2018 02:22 PM Electronically Signed By:Anny Parker
[2018-12-12] MEDS: predniSONE 20 MG TAB PO SCH (14:41)
--- NOTE | 2018-12-12 15:09 | HOSPPROG ---
Hospitalist Progress Note Assessment/Plan: 63 yo M with PMH of HTN, depression pw suicidal ideation and found to have AHRF 2/2 PNA and sepsis Acute hypoxic respiratory failure:uses two liters at night normally for GILSON, now requiring 3 liters. repeat CXR minimally improved. started on steroids with improvement. He continues to improve clinically, white count downtrending, procalcitonin downtrending as well. patient complaining of blood tinged sputum, prompting CT chest which showed PNA and right effusion. curbsided pulmonology who felt that given his hx of smoking large amounts of marijuana daily (up to 4 grams daily of cannabis) and his clinical improvement, would not likely oil changer. -today is day 7 of abx for CAP, will stop -TTE with diastolic dysnfunction -CT with right effusion and multifocal PNA -nebs. -oxygen -tessalon, guiafenesin -cont lasix RLL PNA: Completed 7 day course of abx. patient does note that he has vocal cord dysfunction. GLASS CALIBRATOR evaluated and cleared. HFpEF- Grade two diastolic dysfunction on TTE, elevated BNP, edema and right effusion. started on lasix. May benefit from cardiology evaluation. -cont lasix 20mg QD -cont josef inhibitor Ascending aorta dilation- up to 4.[address] and TTE. Will need F/U. May be contributing to aortic regurge severe sepsis: resolved. responded to fluids and antibiotics. cont pna treatment , repeat lactate WNL. white count trending down. Fauzia/paranoid behavior- Demanding a toxicology consult, onc consult, and stated we are trying to poison him with polychlorinated biphenyl. Demanded an FBI and police investigation. Accused nursing of stealing his personal belongings. wrote an extensive letter explaining demands and that he feels his lifeforce is beign drained. -dedicated psychiatric evaluation placed. -prn anti anxiety medications. -mental health following. suicidal ideation: behavioral health following. [facility] has been consulted who is completing eval currently. If tries to leave ama I would place on M1 hold. depression/ptsd: patient reports these dx and states he has been attempting to establish care with psychiatry without success, as above. James Andersen consulted. hyponatremia: resolved with fluids chronic pain- home medications restarted. HTN- restart lisinopril. renal function normalized. hang:resolved with fluids PPX- lovenox 40 daily IP status, will require > 48 hours stay for eval/mgmt of above Subjective: patient insisting he wants an FBI and police investigation due to his civil rights being violated. When asked how he says nurses conspiring against him. concern about being poisoned by PCBs. Objective: Vital Signs Temp Pulse Resp BP Pulse Ox 37.1 C 75 20 128/66 H 94 12/12/18 07:06 12/12/18 11:14 12/12/18 11:14 12/12/18 11:14 12/12/18 11:14 Laboratory Results 12/12/18 04:38 12/12/18 04:38 12/11/18 12/12/18 12/13/18 05:59 05:59 05:59 Intake Total 1999 1500 Output Total 2300 Balance 1999 -800 - Physical Exam Constitutional: no apparent distress, appears nourished, not in pain Eyes: PERRL, anicteric sclera, EOMI Ears, Nose, Mouth, Throat: moist mucous membranes, ears appear normal, no oral mucosal ulcers, hard of hearing Cardiovascular: regular rate and rhythym, no murmur, rub, or gallop, edema Respiratory: no respiratory distress, no rales or rhonchi, inspiratory crackles Gastrointestinal: normoactive bowel sounds, soft, non-tender abdomen, no palpable masses Genitourinary: no bladder fullness, no bladder tenderness, no renal bruits Skin: no rashes or abrasions, no fluctuance, no induration Musculoskeletal: full muscle strength, no muscle tenderness, normal joint ROM Neurologic: AAOx3, sensation intact bilaterally Psychiatric: interacting appropriately, not anxious, not encephalopathic, thought process linear Lymph, Heme, Immunologic: no cervical LAD, no supraclavicular LAD ICD10 Worksheet Patient Problems: Problems Problem Status Onset Hypoxia Acute Pneumonia Acute Suicidal ideation Acute
[2018-12-12] MEDS: TRAVOPROST Z 0.004% 2.5 ML OPHT.BTL EACHEYE SCH (21:47)
[2018-12-12] MEDS: NEBIVOLOL HCL 5 MG TAB PO SCH (21:54)
[2018-12-12] MEDS: PRAZOSIN HCL 1 MG CAP PO SCH (21:55)
[2018-12-12] MEDS: ONDANSETRON DISINTEGRATING 4 MG TAB PO PRN (21:56)
[2018-12-13] MEDS: oxyCODONE IR 5 MG TAB PO SCH ×5 (00:56→22:59)
[2018-12-13] MEDS: PROMETHAZINE HCL 25 MG/ML INJ IVP PRN (02:07)
[2018-12-13] MEDS: LORazepam 2 MG/ML INJ IVP PRN (03:53)
[2018-12-13] MEDS: HYDROmorphONE/DILAUDID 2 MG TAB PO PRN ×4 (03:53→22:39)
[2018-12-13] MEDS: FLUTICASONE HFA 110 MCG MDI IH SCH ×2 (08:23→21:35)
[2018-12-13] MEDS: IPRATROPIUM/ALBUTEROL 3 ML DEYVIAL IH SCH ×2 (08:23→21:35)
[2018-12-13] MEDS: DOCUSATE SODIUM 100 MG CAP PO SCH ×2 (08:39→21:52)
[2018-12-13] MEDS: LISINOPRIL 40 MG TAB PO SCH (09:03)
[2018-12-13] MEDS: PANTOPRAZOLE SODIUM 40 MG TAB PO SCH (09:03)
[2018-12-13] MEDS: BACLOFEN 10 MG TAB PO SCH ×3 (09:04→21:52)
[2018-12-13] MEDS: LORazepam 0.5 MG TAB PO PRN ×2 (09:06→16:43)
[2018-12-13] MEDS: FAMOTIDINE 20 MG TAB PO SCH ×2 (09:06→21:52)
[2018-12-13] MEDS: guaiFENesin 600 MG TAB.ER PO SCH ×2 (09:06→21:52)
[2018-12-13] MEDS: ENOXAPARIN 40 MG/0.4 ML SYR SC SCH (09:06)
[2018-12-13] MEDS: FUROSEMIDE 20 MG/2 ML VIAL IVP SCH (09:07)
[2018-12-13] MEDS: BRIMONIDINE/TIMOLOL 5 ML OPHT.BTL EACHEYE SCH ×2 (09:07→21:53)
--- NOTE | 2018-12-13 11:54 | HOSPPROG ---
Hospitalist Progress Note Assessment/Plan: # R sided CAP - given the severity on imaging, I will give him another few days of abx - he also has a R pleural effusion - will discuss a thora with him tomorrow # acute hypoxic resp failure - uses 2L O2 overnight for GILSON at baseline - recheck CXR tomorrow # psychiatric problems, suicidal ideation - these were his presenting complaints to the ED - he has a long history of PTSD, possible personality disorder - he is calm and cooperative today with a normal affect, although he alludes to toxic poisoning and a fungal bloodstream infection - appreciate Zena Andersen's assistance - she will consult Dr Ellis today - he is not currently on an M1 as he wants to continue treatment here, but if he were to leave he should be evaluated by [facility] prior # dCHF - cont lasix and SOURAV-I - he has a R pleural effusion - unclear if d/t volume overload # deafness - reads lips, does not have his cochlear implants with him # severe sepsis - resolved # htn - lisinopril, bystolic # asc aorta dilation, aortic regurg - needs cards follow up # chronic pain - cont home meds # MATT - resolved Subjective: still with breathing difficulties; also having issue with his PTSD and depression Objective: Vital Signs Temp Pulse Resp BP Pulse Ox 36.6 C 74 18 123/68 H 97 12/13/18 08:35 12/13/18 08:35 12/13/18 08:35 12/13/18 08:35 12/13/18 08:35 Laboratory Results 12/12/18 04:38 12/12/18 04:38 12/12/18 12/13/18 12/14/18 05:59 05:59 05:59 Intake Total 1500 1250 400 Output Total 2300 2110 1100 Balance -800 -960 -[address] and CXRs personally reviewed - Physical Exam Constitutional: no apparent distress, appears nourished Cardiovascular: regular rate and rhythym, no murmur, rub, or gallop Respiratory: no respiratory distress, inspiratory crackles (R sided), No clear to auscultation, No rhonchi Gastrointestinal: normoactive bowel sounds, soft, non-tender abdomen ICD10 Worksheet Patient Problems: Problems Problem Status Onset Suicidal ideation Acute Hypoxia Acute Pneumonia Acute
--- NOTE | 2018-12-13 15:00 | ASMTCMCOM ---
CM Note CM Note Notes: Patient has been working will professionals and administrators across the hospital including psychiatry, guest relation officer, Behavioral health RN Zena Andersen and the brokerage manager of oncology. This CM attempted to call [facility] [phone] but it was 1400 MT and the office closes at 330 eastern time. The patient has researched the care facilities and is seeking residential treatment for his PTSD. CM will attempt to connect with insurance tomorrow. Patient requires at least two or more days of IV antibiotics for his pneumonia, Plan: TBD Date Signed: 12/13/2018 02:50 PM Electronically Signed By:Holley Henderson RN
[2018-12-13] MEDS: ALBUTEROL 3 ML DEYVIAL IH PRN (17:48)
[2018-12-13] MEDS: NEBIVOLOL HCL 5 MG TAB PO SCH (21:52)
[2018-12-13] MEDS: PRAZOSIN HCL 1 MG CAP PO SCH (21:52)
[2018-12-13] MEDS: TRAVOPROST Z 0.004% 2.5 ML OPHT.BTL EACHEYE SCH (21:55)
[2018-12-13] MEDS: hydrOXYzine HCL 10 MG TAB PO PRN (22:10)
[2018-12-13] MEDS: DIPHENHYDRAMINE CREAM TP PRN (22:57)
[2018-12-14] MEDS: ALBUTEROL 3 ML DEYVIAL IH PRN (02:19)
[2018-12-14] MEDS: LORazepam 0.5 MG TAB PO PRN ×3 (04:04→21:19)
[2018-12-14] MEDS: HYDROmorphONE/DILAUDID 2 MG TAB PO PRN ×3 (04:04→21:19)
[2018-12-14] MEDS: oxyCODONE IR 5 MG TAB PO SCH ×5 (04:58→23:34)
[2018-12-14] MEDS: ENOXAPARIN 40 MG/0.4 ML SYR SC SCH (09:12)
[2018-12-14] MEDS: FUROSEMIDE 20 MG/2 ML VIAL IVP SCH (09:12)
[2018-12-14] MEDS: DOCUSATE SODIUM 100 MG CAP PO SCH ×2 (09:12→21:39)
[2018-12-14] MEDS: LISINOPRIL 40 MG TAB PO SCH (09:12)
[2018-12-14] MEDS: FAMOTIDINE 20 MG TAB PO SCH ×2 (09:12→21:21)
[2018-12-14] MEDS: BACLOFEN 10 MG TAB PO SCH ×3 (09:12→21:20)
[2018-12-14] MEDS: PANTOPRAZOLE SODIUM 40 MG TAB PO SCH (09:14)
[2018-12-14] MEDS: guaiFENesin 600 MG TAB.ER PO SCH ×2 (09:14→21:19)
[2018-12-14] MEDS: BRIMONIDINE/TIMOLOL 5 ML OPHT.BTL EACHEYE SCH ×2 (09:24→21:22)
[2018-12-14] MEDS: FLUTICASONE HFA 110 MCG MDI IH SCH ×2 (10:00→22:07)
[2018-12-14] MEDS: IPRATROPIUM/ALBUTEROL 3 ML DEYVIAL IH SCH ×2 (10:00→22:07)
--- NOTE | 2018-12-14 10:14 | PDCONSULT ---
Internist Medical Doctor Md Note: PSYCHIATRY MD BRIEF CONSULTATION Psychiatry MD consultation requested by primary team to assess increased agitation and paranoia which seemed present over weekend. Has been interviewed and assessed by Behavioral Health RN Zena Andersen who continues to f/u with him regularly during his hospital stay. Pt interviewed at length on 12/13 with blow down operator present who has assessed patient earlier during current hospitalization Briefly, pt does not meet criteria for M-1 as he reports no current thoughts to harm himself or others, and is not felt to be gravely disabled as a result of a primary mental illness. He reports exacerbation of PTSD symptoms regarding nightmares, flashbacks. Also increased depressed mood, irritability, decreased energy, intermittent passive SI, disrupted and decreased overall quality sleep. Started on Prazosin 1mg during this hospitalization. Denies med s/e. Thinks he' s been on this med before long ago but does not recall dose, and agrees to continue on this med, willing to uptitrate as tolerated. Increase Prazosin to 2mg QHS. Pt also agreeable to Hydroxyzine prn for anxiety, although doesn't feel it has been helpful at recent dose- 10mg. But also worried it may worsen his BPH. Lists all prior psychotropic medication categories which he has been on, and reports no desire to be on other medications at this time. Reports preference being "holistic" approaches, acupuncture, also THC. Does feel some of his irritability may be related to being off THC but also perhaps due to decreased sleep and depression, with his several psychosocial stressors, and continuing medical illness. Reports hx of GILSON, and does wear O2 at night. Psychiatrically, feels he needs residential treatment for his complex PTSD and has been researching programs around the country, having identified one in [place], [place] where he hopes to go. Would like assistance with the process, and states he has talked with pillowcase sewer about this. complete note to follow.
--- NOTE | 2018-12-14 10:29 | HOSPPROG ---
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, not dilated - change abx to cover aspiration; swallow study; abd CT # acute hypoxic resp failure - uses 2L O2 overnight for GILSON at baseline # concerns about PCB poisoning - i discussed with toxicology fellow - she is not aware of an inflammatory pneumonia associated with this; i will not workup further # psychiatric problems, suicidal ideation - these were his presenting complaints to the ED - he has a long history of PTSD, possible personality disorder - he is calm and cooperative today with a normal affect, although he alludes to toxic poisoning and a fungal bloodstream infection - appreciate all mental health assistance - no need for M1 if he tries to leave per Dr Ellis # dCHF - cont lasix and SOURAV-I - he has a R pleural effusion - unclear if d/t volume overload # deafness - reads lips, does not have his cochlear implants with him # severe sepsis - resolved # htn - lisinopril, bystolic # asc aorta dilation, aortic regurg - needs cards follow up # chronic pain - cont home meds # MATT - resolved Subjective: no new complaints today other than that he is very sick Objective: Vital Signs Temp Pulse Resp BP Pulse Ox 36.9 C 68 14 131/65 H 93 12/14/18 07:20 12/14/18 10:05 12/14/18 10:05 12/14/18 09:12 12/14/18 10:05 Laboratory Results 12/12/18 04:38 12/14/18 04:30 12/13/18 12/14/18 12/15/18 05:59 05:59 05:59 Intake Total 1250 1400 Output Total 2110 5633 1200 Balance -860 1075 -[address] Ellis, Dr Meyer (toxicology) - Time Spent With Patient Time Spent with Patient: greater than 35 minutes Time Spent with Patient: Greater than 35 minutes spent on this patients care, greater than 50% of time spent counseling, educating, and coordinating care regarding the above mentioned plan. - Physical Exam Constitutional: no apparent distress, appears nourished ICD10 Worksheet Patient Problems: Problems Problem Status Onset Suicidal ideation Acute Hypoxia Acute Pneumonia Acute
[2018-12-14] MEDS: DIPHENHYDRAMINE CREAM TP PRN (11:07)
[2018-12-14] MEDS: AMPICILLIN/SULBACTAM 3 GM in NS 100 ML IV SCH ×3 (11:59→23:26)
[2018-12-14] MEDS: PRAZOSIN HCL 1 MG CAP PO SCH ×2 (12:00→21:21)
[2018-12-14] MEDS ORDERED: IOPAMIDOL (ISOVUE-300) 100 ML BTL ONE (14:36)
--- NOTE | 2018-12-14 16:13 | ASMTCMCOM ---
CM Note CM Note Notes: Plan of care reviewed in am rounds. Per behavioral health RN patient requesting inpatient residential treatment for PTSD to be covered by a case he one against [employer], his federal health insurance company. Samira PIZANO called Mehdi Gonzáles's number again and left a message which he apparently forwarded to his community youth secretary who is reluctant to share any specific details regarding the patient's previous litigation and resultant outcome regarding coverage for mental health needs. She did share the names and email of persons involved with [employer] , Jacek Li and Romina Weir, I have attempted to email them both [email or web address] and [email or web address] ([phone]) Email did not go through, message left for them to call CM at oncology extension. Met with patient who also asked that we try to reach out to account manager sales representative. I attempted to contact his sales representative metals, but that number has been disconnected. CM to follow. Plan: TBD Date Signed: 12/14/2018 04:12 PM Electronically Signed By:Holley Henderson RN
[2018-12-14] MEDS: ONDANSETRON DISINTEGRATING 4 MG TAB PO PRN (21:20)
[2018-12-14] MEDS: NEBIVOLOL HCL 5 MG TAB PO SCH (21:20)
[2018-12-14] MEDS: CALCIUM CARBONATE 500 MG CHEWABLE TAB PO PRN (21:20)
[2018-12-14] MEDS: BENZONATATE 100 MG CAP PO PRN (21:20)
[2018-12-14] MEDS: TRAVOPROST Z 0.004% 2.5 ML OPHT.BTL EACHEYE SCH (21:22)
[2018-12-15] MEDS: hydrOXYzine HCL 10 MG TAB PO PRN (03:19)
[2018-12-15] MEDS: HYDROmorphONE/DILAUDID 2 MG TAB PO PRN ×4 (03:19→21:07)
[2018-12-15] MEDS: AMPICILLIN/SULBACTAM 3 GM in NS 100 ML IV SCH ×3 (05:03→18:31)
[2018-12-15] MEDS: oxyCODONE IR 5 MG TAB PO SCH ×3 (05:08→18:32)
[2018-12-15 05:39] LABS: PLATELET COUNT 368 10^3/uL (150-400)
[2018-12-15] MEDS: DOCUSATE SODIUM 100 MG CAP PO SCH ×2 (08:08→09:39)
[2018-12-15] MEDS: BACLOFEN 10 MG TAB PO SCH ×3 (08:08→21:00)
[2018-12-15] MEDS: BRIMONIDINE/TIMOLOL 5 ML OPHT.BTL EACHEYE SCH (08:08)
[2018-12-15] MEDS: ENOXAPARIN 40 MG/0.4 ML SYR SC SCH (08:08)
[2018-12-15] MEDS: FAMOTIDINE 20 MG TAB PO SCH ×2 (08:09→21:00)
[2018-12-15] MEDS: FUROSEMIDE 20 MG/2 ML VIAL IVP SCH (08:09)
[2018-12-15] MEDS: guaiFENesin 600 MG TAB.ER PO SCH ×2 (08:09→20:59)
[2018-12-15] MEDS: PANTOPRAZOLE SODIUM 40 MG TAB PO SCH (08:10)
[2018-12-15] MEDS: PRAZOSIN HCL 1 MG CAP PO SCH ×2 (08:10→21:00)
[2018-12-15] MEDS: LISINOPRIL 40 MG TAB PO SCH (08:10)
[2018-12-15] MEDS: DIPHENHYDRAMINE CREAM TP PRN ×2 (08:41→18:37)
[2018-12-15] MEDS: IPRATROPIUM/ALBUTEROL 3 ML DEYVIAL IH SCH ×2 (08:52→20:35)
[2018-12-15] MEDS: FLUTICASONE HFA 110 MCG MDI IH SCH ×2 (08:52→20:37)
--- NOTE | 2018-12-15 16:10 | HOSPPROG ---
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, not dilated - change abx to cover aspiration - swallow study negative # acute hypoxic resp failure - uses 2L O2 overnight for GILSON at baseline # concerns about PCB poisoning - i discussed with toxicology fellow - she is not aware of an inflammatory pneumonia associated with this; i will not workup further # psychiatric problems, suicidal ideation - these were his presenting complaints to the ED - he has a long history of PTSD, possible personality disorder - he is calm and cooperative today with a normal affect, although he alludes to toxic poisoning and a fungal bloodstream infection - appreciate all mental health assistance - no need for M1 if he tries to leave per Dr Ellis # dCHF - cont lasix and SOURAV-I - he has a R pleural effusion - unclear if d/t volume overload # deafness - reads lips, does not have his cochlear implants with him # severe sepsis - resolved # htn - lisinopril, bystolic # asc aorta dilation, aortic regurg - needs cards follow up # chronic pain - cont home meds # MATT - resolved #Asthma: trial of prednisone Plan: cont abx cont Lasix trial of Prednisone repeat cxr in a.m. Psych reccs per their consultation Subjective: still with SOB. Cough +leg swelling Objective: Vital Signs Temp Pulse Resp BP Pulse Ox 36.6 C 76 18 124/69 H 97 12/15/18 15:53 12/15/18 15:53 12/15/18 15:53 12/15/18 15:53 12/15/18 08:53 Laboratory Results 12/15/18 04:56 12/15/18 04:56 12/14/18 12/15/18 12/16/18 05:59 05:59 05:59 Intake Total 1400 2840 Output Total 2475 2200 2024 Balance -1075 640 -2024 - Physical Exam Constitutional: no apparent distress Eyes: PERRL, EOMI Ears, Nose, Mouth, Throat: moist mucous membranes, hearing normal Cardiovascular: edema Respiratory: no respiratory distress, reduced air movement Gastrointestinal: normoactive bowel sounds, soft, non-tender abdomen Skin: warm Neurologic: AAOx3 Psychiatric: interacting appropriately, not anxious, not encephalopathic Lymph, Heme, Immunologic: No petechiae ICD10 Worksheet Patient Problems: Problems Problem Status Onset Hypoxia Acute Pneumonia Acute Suicidal ideation Acute
[2018-12-15] MEDS: predniSONE 20 MG TAB PO SCH (16:23)
--- NOTE | 2018-12-15 16:55 | ASMTCMCOM ---
CM Note CM Note Notes: Zena Andersen and I met with Pt. This CM discussed with Pt creating a plan to get him to a facility for treatment of his C PTSD. CM has been working with Pt for the past week and has made calls, sent emails and we seem to be hitting roadblocks. Pt would like to work with CM and provide us with updated telephone numbers to contact Medicare staff who can help authorized Inpatient treatment centers. This CM will meet with [facility] tomorrow at 8am and Pt will provide Names and phone numbers to call. I have discussed this with CM packaging manager Leyla and she is happy to help in anyway ie make calls and contact treatment facilities. RN caring for Pt updated. CM available for needs. PLAN:TBD Date Signed: 12/15/2018 04:54 PM Electronically Signed By:Sofia Zee
[2018-12-15] MEDS: NEBIVOLOL HCL 5 MG TAB PO SCH (20:58)
[2018-12-15] MEDS: LORazepam 0.5 MG TAB PO PRN (20:59)
[2018-12-15] MEDS: TRAVOPROST Z 0.004% 2.5 ML OPHT.BTL EACHEYE SCH (21:00)
[2018-12-16] MEDS: BRIMONIDINE/TIMOLOL 5 ML OPHT.BTL EACHEYE SCH ×3 (00:05→23:03)
[2018-12-16] MEDS: DOCUSATE SODIUM 100 MG CAP PO SCH ×3 (00:06→23:07)
[2018-12-16] MEDS: AMPICILLIN/SULBACTAM 3 GM in NS 100 ML IV SCH ×3 (00:11→12:48)
[2018-12-16] MEDS: DIPHENHYDRAMINE CREAM TP PRN (00:11)
[2018-12-16] MEDS: oxyCODONE IR 5 MG TAB PO SCH ×5 (00:11→23:07)
[2018-12-16] MEDS: IPRATROPIUM/ALBUTEROL 3 ML DEYVIAL IH SCH ×2 (08:26→21:02)
[2018-12-16] MEDS: FLUTICASONE HFA 110 MCG MDI IH SCH ×2 (08:26→21:03)
[2018-12-16] MEDS: HYDROmorphONE/DILAUDID 2 MG TAB PO PRN (08:46)
[2018-12-16] MEDS: BACLOFEN 10 MG TAB PO SCH ×3 (10:46→19:55)
[2018-12-16] MEDS: PRAZOSIN HCL 1 MG CAP PO SCH ×2 (10:46→23:00)
[2018-12-16] MEDS: guaiFENesin 600 MG TAB.ER PO SCH ×2 (10:46→23:00)
[2018-12-16] MEDS: FAMOTIDINE 20 MG TAB PO SCH ×2 (10:47→23:01)
[2018-12-16] MEDS: LISINOPRIL 40 MG TAB PO SCH (10:47)
[2018-12-16] MEDS: FUROSEMIDE 20 MG/2 ML VIAL IVP SCH (10:48)
[2018-12-16] MEDS: predniSONE 20 MG TAB PO SCH (10:48)
[2018-12-16] MEDS: ENOXAPARIN 40 MG/0.4 ML SYR SC SCH (10:49)
[2018-12-16] MEDS: PANTOPRAZOLE SODIUM 40 MG TAB PO SCH (10:57)
[2018-12-16] MEDS: LORazepam 0.5 MG TAB PO PRN (11:55)
[2018-12-16] MEDS: ONDANSETRON DISINTEGRATING 4 MG TAB PO PRN (11:58)
--- NOTE | 2018-12-16 14:09 | HOSPPROG ---
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, not dilated - change abx to cover aspiration - swallow study negative # acute hypoxic resp failure - uses 2L O2 overnight for GILSON at baseline # concerns about PCB poisoning - Was discussed with toxicology fellow - she is not aware of an inflammatory pneumonia associated with this # psychiatric problems, suicidal ideation - these were his presenting complaints to the ED - he has a long history of PTSD, possible personality disorder - appreciate all mental health assistance - no need for M1 if he tries to leave per Dr Ellis # dCHF - cont lasix and SOURAV-I - he has a R pleural effusion - unclear if d/t volume overload # deafness - reads lips, does not have his cochlear implants with him # severe sepsis - resolved # htn - lisinopril, bystolic # asc aorta dilation, aortic regurg - needs cards follow up # chronic pain - cont home meds # MATT - resolved #Asthma: trial of prednisone #Chronic Pain syndrome Plan: Now on RA, cont with current mgmt change IV abx to Augmentin Change pain meds cont Pred Psych reccs per their consultation Subjective: still mild sob. overall is better. no n/v Objective: Vital Signs Temp Pulse Resp BP Pulse Ox 36.8 C 87 16 165/79 H 92 12/16/18 00:00 12/16/18 08:30 12/16/18 08:30 12/16/18 10:47 12/16/18 08:30 Laboratory Results 12/15/18 04:56 12/15/18 04:56 12/15/18 12/16/18 12/17/18 05:59 05:59 05:59 Intake Total 2840 500 Output Total 2200 2024 Balance 640 -1525 - Physical Exam Constitutional: no apparent distress Eyes: PERRL, EOMI Ears, Nose, Mouth, Throat: moist mucous membranes, hearing normal Cardiovascular: regular rate and rhythym, No edema Respiratory: no respiratory distress, no rales or rhonchi, clear to auscultation Gastrointestinal: normoactive bowel sounds Skin: warm Neurologic: AAOx3 Psychiatric: interacting appropriately, not anxious, not encephalopathic Lymph, Heme, Immunologic: No petechiae ICD10 Worksheet Patient Problems: Problems Problem Status Onset Hypoxia Acute Pneumonia Acute Suicidal ideation Acute
--- NOTE | 2018-12-16 17:24 | ASMTCMCOM ---
CM Note CM Note Notes: 8a met with Pt as planned to obtain medicare/ SS/Insurance and telephone numbers (which Pt did not have ready) to contact Insurance people. Pt was feeling like he had a sinus infection and was having pain. RN notified. Pt asked if this CM could come back within an hour and Pt would have the contact information and numbers ready. 1015 met with Pt who provided ss numbers, medicare, and a telephone number to call. This information provided to [facility] Director who will make the calls today. I updated Pt that we were working on calling, but have not made contact yet. Pt provided this CM with two [employer] Physicians he would be interested in having as PCP. I called Dr Posada and Annette office staff will check with Dr Brenner tomorrow and will call [facility] CM with the answer tomorrow. I Provide Pt with the amount he would have to pay up front $1800 yearly, 1/2 hr appointments, etc. CM available for needs. PLAN: TBD Date Signed: 12/16/2018 05:23 PM Electronically Signed By:Sofia Zee
[2018-12-16] MEDS: clonazePAM 0.5 MG TAB PO PRN ×2 (18:22→23:01)
[2018-12-16] MEDS: oxyCODONE IR 5 MG TAB PO PRN (19:56)
[2018-12-16] MEDS: NEBIVOLOL HCL 5 MG TAB PO SCH (23:00)
[2018-12-16] MEDS: AMOXICILLIN/CLAVULANATE POT 875/125 MG TAB PO SCH (23:00)
[2018-12-16] MEDS: TRAVOPROST Z 0.004% 2.5 ML OPHT.BTL EACHEYE SCH (23:07)
[2018-12-17 04:52] LABS: PLATELET COUNT 423 10^3/uL (150-400)
[2018-12-17] MEDS: oxyCODONE IR 5 MG TAB PO SCH ×3 (06:32→20:26)
[2018-12-17] MEDS: guaiFENesin 600 MG TAB.ER PO SCH ×3 (09:23→20:24)
[2018-12-17] MEDS: LISINOPRIL 40 MG TAB PO SCH ×2 (09:23→12:03)
[2018-12-17] MEDS: AMOXICILLIN/CLAVULANATE POT 875/125 MG TAB PO SCH ×2 (09:23→20:24)
[2018-12-17] MEDS: FAMOTIDINE 20 MG TAB PO SCH ×3 (09:24→20:25)
[2018-12-17] MEDS: ENOXAPARIN 40 MG/0.4 ML SYR SC SCH ×2 (09:24→12:11)
[2018-12-17] MEDS: PRAZOSIN HCL 1 MG CAP PO SCH ×3 (09:24→20:24)
[2018-12-17] MEDS: PANTOPRAZOLE SODIUM 40 MG TAB PO SCH ×2 (09:24→12:04)
[2018-12-17] MEDS: predniSONE 20 MG TAB PO SCH ×2 (09:29→12:04)
[2018-12-17] MEDS: oxyCODONE IR 5 MG TAB PO PRN ×2 (09:29→22:38)
[2018-12-17] MEDS: FLUTICASONE HFA 110 MCG MDI IH SCH ×2 (09:32→21:25)
[2018-12-17] MEDS: IPRATROPIUM/ALBUTEROL 3 ML DEYVIAL IH SCH ×2 (09:32→21:25)
[2018-12-17] MEDS: BACLOFEN 10 MG TAB PO SCH ×3 (09:40→20:25)
[2018-12-17] MEDS: DOCUSATE SODIUM 100 MG CAP PO SCH (09:40)
[2018-12-17] MEDS: FUROSEMIDE 20 MG/2 ML VIAL IVP SCH (10:19)
[2018-12-17] MEDS: BRIMONIDINE/TIMOLOL 5 ML OPHT.BTL EACHEYE SCH ×2 (12:06→20:41)
--- NOTE | 2018-12-17 13:20 | CPEKG ---
Test Reason : OPEN Blood Pressure : / mmHG Vent. Rate : 088 BPM Atrial Rate : 088 BPM P-R Int : 168 ms QRS Dur : 095 ms QT Int : 369 ms P-R-T Axes : 043 -17 045 degrees QTc Int : 447 ms Sinus rhythm LVH with secondary repolarization abnormality Confirmed by Min Mccoy ([id number]) on 12/17/2018 1:20:12 PM Referred By: Miguel Angel Lewis Confirmed By:Min Mccoy
--- NOTE | 2018-12-17 14:06 | PDDCSUM ---
Discharge Summary Discharge Summary: The pt was admitted with right sided CAP, sepsis, and suicidal ideations. He was treated accordingly. Please see below. At this time the pt is on RA. He will complete an Augmentin course (4 more days). He is also on a steroid taper. Volume haq he euvolemic; he was started on Lasix. He will f/u with a new PCP ( [facility]) which he is making arrangements for. He will d/c next week. He was seen by psychiatry and is felt to not have further active SI. DDX: # R sided CAP - Augment - swallow study negative # acute hypoxic resp failure - uses 2L O2 overnight for GILSON at baseline. None during the day. He is at baseline # psychiatric problems, suicidal ideation - these were his presenting complaints to the ED - he has a long history of PTSD, possible personality disorder - appreciate all mental health assistance - no need for M1 - no active SI # dCHF - cont lasix and SOURAV-I # deafness - reads lips, does not have his cochlear implants with him # severe sepsis - resolved # htn - lisinopril, bystolic # asc aorta dilation, aortic regurg - needs cards follow up # chronic pain - cont home meds # MATT - resolved #Asthma: Prednisone taper #Chronic Pain syndrome #Anxiety: f/u with op physician Exam: NAD AAOX3 RRR CTA B MEDS: SEE MED REC TOTAL TIME SPENT ON D/C IS 45 MINS
[2018-12-17] MEDS ORDERED: FUROSEMIDE 40 MG TAB PO ONE (14:07)
[2018-12-17] MEDS: NEBIVOLOL HCL 5 MG TAB PO SCH (20:25)
[2018-12-17] MEDS: clonazePAM 0.5 MG TAB PO PRN (20:33)
[2018-12-17] MEDS: TRAVOPROST Z 0.004% 2.5 ML OPHT.BTL EACHEYE SCH (20:36)
[2018-12-18] MEDS: oxyCODONE IR 5 MG TAB PO SCH ×3 (00:57→12:25)
[2018-12-18] MEDS: CALCIUM CARBONATE 500 MG CHEWABLE TAB PO PRN (00:58)
[2018-12-18] MEDS: hydrOXYzine HCL 10 MG TAB PO PRN ×2 (00:58→08:29)
[2018-12-18] MEDS: ONDANSETRON DISINTEGRATING 4 MG TAB PO PRN ×2 (00:58→06:43)
[2018-12-18] MEDS: DOCUSATE SODIUM 100 MG CAP PO SCH ×2 (01:33→08:12)
[2018-12-18] MEDS ORDERED: ALPRAZolam 1 MG TAB PO ONE (02:20)
[2018-12-18] MEDS: clonazePAM 0.5 MG TAB PO PRN (06:44)
[2018-12-18 08:07] VITALS: BP 148/68
[2018-12-18] MEDS: BACLOFEN 10 MG TAB PO SCH (08:12)
[2018-12-18] MEDS: ENOXAPARIN 40 MG/0.4 ML SYR SC SCH (08:13)
[2018-12-18] MEDS: FAMOTIDINE 20 MG TAB PO SCH (08:21)
[2018-12-18] MEDS: guaiFENesin 600 MG TAB.ER PO SCH (08:21)
[2018-12-18] MEDS: oxyCODONE IR 5 MG TAB PO PRN (08:22)
[2018-12-18] MEDS: AMOXICILLIN/CLAVULANATE POT 875/125 MG TAB PO SCH (08:22)
[2018-12-18] MEDS: PANTOPRAZOLE SODIUM 40 MG TAB PO SCH (08:22)
[2018-12-18] MEDS: LISINOPRIL 40 MG TAB PO SCH (08:22)
[2018-12-18] MEDS: PRAZOSIN HCL 1 MG CAP PO SCH (08:22)
[2018-12-18] MEDS: predniSONE 20 MG TAB PO SCH (08:22)
[2018-12-18] MEDS: BRIMONIDINE/TIMOLOL 5 ML OPHT.BTL EACHEYE SCH (08:25)
--- NOTE | 2018-12-18 10:22 | ASMTCMCOM ---
CM Note CM Note Notes: Complicated pt, read previous CM notes. Pt is otherwise independent in mobility and all ADLs. He refused dc yesterday. Anticipate he will dc independent when accepting of discharge. DC Plan: Independent Date Signed: 12/18/2018 10:21 AM Electronically Signed By:Zena Solano RN
[2018-12-18] MEDS: FLUTICASONE HFA 110 MCG MDI IH SCH (10:25)
[2018-12-18] MEDS: IPRATROPIUM/ALBUTEROL 3 ML DEYVIAL IH SCH (10:26)
--- NOTE | 2018-12-18 12:14 | HOSPPROG ---
Hospitalist Progress Note Assessment/Plan: The case management team, the pt's nurse, and myself met with the patient to determine how we can best help with the patients needs. Erin Holcomb (case mgmt), Zena Moe (case mgmt), Jessie Patricia (RN), and myself met with the patient but he refused medical evaluation citing he would only do it if we made him do it against his will. He stated that we were violating his rights and that I specially had violated his rights and he communicated that further discussion was a violation of his rights and that legal actions would be taken and that multiple complaints had already been made with the chairman of the board, the medical licensing department, and the media. We listened to him and politely excuse ourselves as he refuse medical care. The pt's nurse was notified before our patient meeting that the patient was found on a floor outside his medical floor (the second floor) by our medical staff yelling. He eventually made his way back to his medical floor and room but threatened his nurse with litigation stating that his rights were being violated. The patient is refusing medical care. He may have delusions as he was found on another medical floor yelling. He initially was admitted with suicidal ideations. We will get a stat behavioral evaluation for further recommendations and patient safety. Objective: Vital Signs Temp Pulse Resp BP Pulse Ox 36.4 C 67 16 148/68 H 97 12/18/18 08:00 12/18/18 08:00 12/18/18 08:00 12/18/18 08:00 12/18/18 08:00 Laboratory Results 12/17/18 04:25 12/17/18 04:25 12/17/18 12/18/18 12/19/18 05:59 05:59 05:59 Intake Total 1350 600 Output Total 220 Balance 1130 600 - Physical Exam Constitutional: uncomfortable Eyes: EOMI Psychiatric: anxious, agitated, No interacting appropriately, No thought process linear ICD10 Worksheet Patient Problems: Problems Problem Status Onset Hypoxia Acute Pneumonia Acute Suicidal ideation Acute
--- NOTE | 2018-12-18 12:37 | ASMTTCLDSP ---
TLC Discharge Disposition Disposition: Answers: Discharge Disposition Notes: Notes: In consultation with [facility] Hospitalist physician, Dat Wayne MD, and on-call psychiatrist, Tammy Ellis MD, both concurred that pt does not appear to meet 27-65 criteria requiring psychiatric hospitalization as pt does not appear to be an imminent risk of harm to self, others, or gravely disabled due to a mental illness condition. Discharge Concerns/Recommendations: Notes: PT is requesting narcotics, refusing medical care, and medically ready for discharge. Per Dr Ellis Consult: "The pt psychiatrically, feels he needs residential treatment for his complex PTSD and has been researching programs around the country, having identified one in [place], [place] where he hopes to go." Due to pt's diagnosis of C-PTSD at another in facility on the [facility], the pt will need to collect his records and contact the facility directly as [facility] is not appropriate to facilitate this out of state psychiatric admission. Date Signed: 12/18/2018 12:37 PM Electronically Signed By:Quincy Grant
--- NOTE | 2018-12-18 13:41 | PDDCSUM ---
Discharge Summary Discharge Summary: The pt was admitted with right sided CAP, sepsis, and suicidal ideations. He was treated accordingly and is medically and psychiatrically stable for discharge. He in on RA. He does not have active SI. He is refusing further medical care. On the day prior to discharge he refused discharge. On the morning of discharge he refused medical examination or medical care. He was found to be yelling on another floor in the hospital and therefore a TLC (Behavioral health) consult was obtained. He was evaluated by our behavioral team on the day of discharge and they have found him not to be suicidal or threat to himself or others. The pt is medically stable and clear for discharge and he refuses further medical care or evaluation today. He has been cleared psychiatrically by our behavioral team. The pt will be discharged. He is agreeable to this. At this time of discharge, the pt is on RA. He will complete an Augmentin course (4 more days). He is also on a steroid taper. Volume haq he euvolemic; he was started on Lasix. DDX: #PTSD, intermittent SI, Anxiety, Depression, Possible Malingering, Delusions -The pt was evaluated by our psych team and felt to be appropriate for discharge. He wants to do a PTSD clinic out of state and he will need to coordinate this as it could not be coordinated while he was inpatient. He is going through a divorce and this has likely triggered lot of emotional stress. He did not meet criteria for inpatient hospitalization. He has been started on Clonazepam which he reports he has been on previously and has tolerated well. A prescription for this was given with adequate supply so as to allow for a successful time for follow up with his PCP. He refused starting any psychiatrical meds #Deafness -he was offered an spanish interpreter/translator at various times and has refused. He reads lips and has been able to communicate successfully by reading lips with multiple providers # R sided CAP -He was treated accordingly with IV abx and at the time of discharge has been changed to PO abx to include Augmentin. He should complete his abx course as prescribed. He is on RA during the day. He does use supplemental O2 at night and this is his chronic baseline. He is noted to be able to ambulate throughout the hospital without difficulty. There were concerns for aspiration but his swallow eval was negative # acute hypoxic resp failure - uses 2L O2 overnight for GILSON at baseline. None during the day. He is at baseline # dCHF - cont lasix as prescribed # severe sepsis - resolved # htn - lisinopril, bystolic. BP is appropriate on discharge # MATT - resolved #Asthma with mild exacerbation: Prednisone taper. Amount of daily Prednisone was decreased at bedtime. He tolerated the prednisone well.I dont' believe the low dose steroid caused any agitation or psychosis as this has been intermittent prior to steroids being started. Further, the Prednisone was decreased again on discharge. #Chronic Pain syndrome -he has f/u with his pain specialist in 3 days -There is a high suspicion for Narcotic abuse disorder Exam: see progress note Meds: appropriate meds prescribed f/U: 1)PCP tomorrow (Thursday) 2)Pain specialist (Thursday)
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
--- NOTE | 2018-12-18 15:19 | ASMTCMCOM ---
CM Note CM Note Notes: 12/18/2018 Case Management Note Discussed case with ARN this morning. Discussed w/Customer Advocate and Director of Case Management department. At request of MD, attended MD rounds with RN and fellow hospice case manager in pt room. Pt was dressed, pacing the room and irritable. MD offered to arrange for electrocardiographic technician due to pt profound deafness. Pt declined stating he can read lips. Pt declined medical exam citing his rights were being violated. RN offered electrocardiographic technician a second time. Pt declined and requested we leave the room. Per ARN pt was escorted from this morning yelling about hospital staff violating his rights. Please see note. MD ordered TLC evaluation. TLC evaluated pt and cleared for d/c with collaboration with Dr. Ellis. Please see note. Attended conference with Bilingual Medical Assistant, ARN, fellow hospice case manager and RN calling [facility] for guidance. Pt does not qualify for SNF rehab or home care based on independence with ADL's and lack of senior living needs. AOC and floor nurse instructed case management to arrange for appointment with Dr. Brown's [facility]. Phone call to [phone]. Arranged appointment with Rosette Arciniega for 9:45 am on Thursday at [address]. Pt required to pay $1800 on Thursday for annual fee. Per Rosette, pt aware of this fee. Notified RN and MD of appointment. Accompanied RN into room during discharge instructions. Pt declined appointment with Rosette Arciniega. Notified Rosette Arciniega. Pt stated he planned to take an UBER home. Pt requested case management sign a 2 page handwritten letter and enter it into medical records. Both sample case porter declined. Informed floor nurse of request, in agreement with sample case porter. Case Management d/c poc: independent with follow up as arranged by pt. Date Signed: 12/18/2018 03:18 PM Electronically Signed By:Erin Holcomb RN
--- NOTE | 2018-12-18 17:20 | ASMTCMCOM ---
HARINDER Note CM Note Notes: CM received call from RN and MD regarding discharge planning for pt. Pt is very angry feeling like his needs have not been met. HARINDER and rodrigo PIZANO went in to meet pt with RN and MD. Pt was dressed and indpendently moving about his room. He was offered an manager statistical programming but pt refused. MD asked pt if he could do a clinical examination and pt refused. Pt wants MD to read the letter he wrote to the hospital directors and refused clinical exam again, MD thanked pt and we all left the room. Pt did not qualify for SNF, was cleared by PT/OT on 12/13 to return home. Discussed dc plan with team, pt signed his IM but did not pursue appeal. It was decided that TLC should evaluate pt again since he was exhibiting angry behaviors on other floors. Pt was seen by TLC and cleared for discharge. He was offered an appointment on Thursday with Dr Posada but pt stated that he did not want to see and "employee" of the hospital. Pt also offered a ride home but declined saying he was taking an Uber. Pt received all of his medications from RN. DC Plan: Independent Date Signed: 12/18/2018 05:20 PM Electronically Signed By:Zena Solano RN
--- NOTE | 2018-12-23 14:29 | ASDISCHSUM ---
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 involved with [employer] , Jacek Li and Romina Weir, I have attempted to email them both [email or web address] and [email or web address] ([phone]) Email did not go through, message left for them to call CM at [facility] extension. Met with patient who also asked that we try to reach out to account retention representative. I attempted to contact his branch sales and service representative, but that number has been disconnected. CM to follow. Plan: TBD Date Signed: 12/14/2018 04:12 PM Electronically Signed By:Holley Henderson RN [facility] Progress Note CM Note CM Note Notes: Zena Andersen and I met with Pt. This CM discussed with Pt creating a plan to get him to a facility for treatment of his C PTSD. HARINDER has been working with Pt for the past week and has made calls, sent emails and we seem to be hitting roadblocks. Pt would like to work with CM and provide us with updated telephone numbers to contact Medicare staff who can help authorized Inpatient treatment centers. This CM will meet with [facility] tomorrow at 8am and Pt will provide Names and phone numbers to call. I have discussed this with CM valuation manager Leyla and she is happy to help in anyway ie make calls and contact treatment facilities. RN caring for Pt updated. CM available for needs. PLAN:TBD Date Signed: 12/15/2018 04:54 PM Electronically Signed By:Sofia Zee [facility] CM Progress Note CM Note CM Note Notes: 8a met with Pt as planned to obtain medicare/ SS/Insurance and telephone numbers (which Pt did not have ready) to contact Insurance people. Pt was feeling like he had a sinus infection and was having pain. RN notified. Pt asked if this CM could come back within an hour and Pt would have the contact information and numbers ready. 1015 met with Pt who provided ss numbers, medicare, and a telephone number to call. This information provided to [facility] Director who will make the calls today. I updated Pt that we were working on calling, but have not made contact yet. Pt provided this CM with two [employer] he would be interested in having as PCP. I called Dr Posada and Annette office staff will check with Dr Brenner tomorrow and will call [facility] with the answer tomorrow. I Provide Pt with the amount he would have to pay up front $1800 yearly, 1/2 hr appointments, etc. CM available for needs. PLAN: TBD Date Signed: 12/16/2018 05:23 PM Electronically Signed By:Sofia Zee [facility] CM Progress Note CM Note CM Note Notes: Complicated pt, read previous CM notes. Pt is otherwise independent in mobility and all ADLs. He refused dc yesterday. Anticipate he will dc independent when accepting of discharge. DC Plan: Independent Date Signed: 12/18/2018 10:21 AM Electronically Signed By:Zena Solano RN TLC Discharge Disposition TLC Discharge Disposition Disposition: Answers: Discharge Disposition Notes: Notes: In consultation with [facility] Hospitalist physician, Dat Wayne MD, and on-call psychiatrist, Tammy Ellis MD, both concurred that pt does not appear to meet 27-65 criteria requiring psychiatric hospitalization as pt does not appear to be an imminent risk of harm to self, others, or gravely disabled due to a mental illness condition. Discharge Concerns/Recommendations: Notes: PT is requesting narcotics, refusing medical care, and medically ready for discharge, and Case mgmt has set up an appointment with a PCP at a [facility] for Thursday. Per Dr Ellis Consult: "The pt psychiatrically, feels he needs residential treatment for his complex PTSD and has been researching programs around the country, having identified one in [place], [place] where he hopes to go." Due to pt's diagnosis of C-PTSD at another in facility on the [facility], the pt will need to collect his records and contact the facility directly as [facility] is not appropriate to facilitate this out of state psychiatric admission. Date Signed: 12/18/2018 01:48 PM Electronically Signed By:Quincy Grant [facility] CM Progress Note CM Note CM Note Notes: CM received call from RN and MD regarding discharge planning for pt. Pt is very angry feeling like his needs have not been met. HARINDER and rodrigo PIZANO went in to meet pt with RN and . Pt was dressed and indpendently moving about his room. He was offered an custom bow maker but pt refused. asked pt if he could do a clinical examination and pt refused. Pt wants MD to read the letter he wrote to the hospital directors and refused clinical exam again, MD thanked pt and we all left the room. Pt did not qualify for SNF, was cleared by PT/OT on 12/13 to return home. Discussed dc plan with team, pt signed his IM but did not pursue appeal. It was decided that TLC should evaluate pt again since he was exhibiting angry behaviors on other floors. Pt was seen by TLC and cleared for discharge. He was offered an appointment on Thursday with Dr Posada but pt stated that he did not want to see and "employee" of the hospital. Pt also offered a ride home but declined saying he was taking an Uber. Pt received all of his medications from RN. DC Plan: Independent Date Signed: 12/18/2018 05:20 PM Electronically Signed By:Zena Solano RN [facility] CM Progress Note CM Note CM Note Notes: 12/18/2018 Case Management Note Discussed case with ARN this morning. Discussed w/Catalogue Librarian and Director of Case Management department. At request of MD, attended MD rounds with RN and fellow caser in in pt room. Pt was dressed, pacing the room and irritable. offered to arrange for custom bow maker due to pt profound deafness. Pt declined stating he can read lips. Pt declined medical exam citing his rights were being violated. RN offered custom bow maker a second time. Pt declined and requested we leave the room. Per ARN pt was escorted from this morning yelling about hospital staff violating his rights. Please see note. MD ordered TLC evaluation. TLC evaluated pt and cleared for d/c with collaboration with Dr. Ellis. Please see note. Attended conference with [employer], ARN, fellow caser in and RN calling [facility] for guidance. Pt does not qualify for SNF rehab or home care based on independence with ADL's and lack of nursing home needs. AOC and floor helper instructed case management to arrange for appointment with [facility]. Phone call to [phone]. Arranged appointment with Rosette Arciniega for 9:45 am on Thursday at [address]. Pt required to pay $1800 on Thursday for annual fee. Per Rosette, pt aware of this fee. Notified RN and MD of appointment. Accompanied RN into room during discharge instructions. Pt declined appointment with Rosette Arciniega. Notified Rosette Arciniega. Pt stated he planned to take an UBER home. Pt requested case management sign a 2 page handwritten letter and enter it into medical records. Both continuous pillowcase cutter declined. Informed floor helper of request, in agreement with continuous pillowcase cutter. Case Management d/c poc: independent with follow up as arranged by pt. Date Signed: 12/18/2018 03:18 PM Electronically Signed By:Erin Holcomb RN Intervention Information Intervention Type:*IM-Signed Date of Service:12/17/2018 02:37 PM Patient Type:Inpatient Staff Member:Dhara Sullivan Hours: Discipline: Severity: Comment:Patient signed the Important Notice fo rm as well as wrote on the back a lengthy stateme nt outlining how he no longer wishes to stay in the hospital but is concerned his admitted medical conditions were n ot addressed during his hospitalization.
== END 2018-12-18 13:54 | disposition home or self-care (01) | DRG 871 ==
LOC: F1N 18:21
PROVIDERS: ADMIT Internal Medicine; ATTEND Internal Medicine
DX: A41.9 Sepsis, unspecified organism (principal); J18.8 Other pneumonia, unspecified organism; J96.01 Acute respiratory failure with hypoxia; F33.3 Major depressive disorder, recurrent, severe with psychotic symptoms; N17.9 Acute kidney failure, unspecified; I11.0 Hypertensive heart disease with heart failure; I50.32 Chronic diastolic (congestive) heart failure; Z76.5 Malingerer [conscious simulation]; R65.20 Severe sepsis without septic shock; F43.10 Post-traumatic stress disorder, unspecified; F41.9 Anxiety disorder, unspecified; H91.90 Unspecified hearing loss, unspecified ear; J45.909 Unspecified asthma, uncomplicated; G89.4 Chronic pain syndrome; I35.1 Nonrheumatic aortic (valve) insufficiency; G47.33 Obstructive sleep apnea (adult) (pediatric)
CPT/HCPCS: 80305; 84484-ER; 92610-GN; 92611-GN; 96365; 97116-GP; 97162-GP; 97165-GO; 97535-GO; G0480; G0515-GO; J0295; J0456; J0572; J0696; J1170; J1650; J1885; J1940; J2060; J2405; J2550; J2930; J7512; J7613; Q9967